=== PATIENT | female | born 1940 | race Caucasian/White ===

== ENCOUNTER 2018-06-19 06:08 | Emergency (ER) | payer MEDICARE, OTHER ==
[~2018-06-19] VITALS: Ht 160 cm; Wt 72.6 kg
[2018-06-19] MEDS ORDERED: SOTALOL 80 MG TABLET (06:39)
[2018-06-19] MEDS ORDERED: PANTOPRAZOLE SOD DR 40 MG TAB (06:39)
[2018-06-19] MEDS ORDERED: FUROSEMIDE 20 MG TABLET (06:39)
[2018-06-19] MEDS ORDERED: ROPINIROLE HCL 0.25 MG TABLET (06:39)
[2018-06-19] MEDS ORDERED: ALLOPURINOL 100 MG TABLET (06:39)
[2018-06-19] MEDS ORDERED: ELIQUIS 5 MG TABLET (06:39)
[2018-06-19] MEDS ORDERED: TRAZODONE 50 MG TABLET (06:39)
[2018-06-19] MEDS ORDERED: PRAVASTATIN SODIUM 40 MG TAB (06:39)
[2018-06-19] MEDS ORDERED: TRAMADOL HCL 50 MG TABLET (06:39)
[2018-06-19] MEDS ORDERED: ALPR0.25 (06:40)
[2018-06-19 06:49] LABS: CLARITY,URINE CLOUDY; COLOR,URINE AMBER; GLUCOSE, URINE (UA) NEGATIVE (NEGATIVE); KETONES,URINE NEGATIVE (NEGATIVE); NITRITE,URINE POSITIVE (NEGATIVE); PH,URINE 5.5 (5-9); PROTEIN,URINE 3+ (NEGATIVE)
[2018-06-19 07:02] LABS: BACTERIA,URINE TRACE /HPF; BILIRUBIN,URINE 1+ (NEGATIVE); LEUKOCYTE ESTERASE ,URINE 3+ (NEGATIVE); RBC,URINE >100 /HPF; UROBILINOGEN,URINE 0.2 MG/DL (NORMAL); WBC,URINE 50-100 /HPF
--- NOTE | 2018-06-19 07:02 | ED GU-Female ---
General Chief Complaint: - Urinary Stated Complaint: ABD PRESSURE, BLOOD IN URINE, SYMPTOMS OF UTI Nursing Triage Note: pt states uti symptoms sarted yesterday, has hx of frequent uti's, took azo over the counter with no relief Nursing Sepsis Screen: No Definite Risk Source: patient Exam Limitations: no limitations History of Present Illness Date Seen by Provider: Jun 19, 2018 Time Seen by Provider: 06:20 Initial Comments 77-year-old female with history of recurrent urinary tract infections and recent C. difficile infection who presents with urinary urgency frequency urgency and burning. Symptoms began yesterday and continued. Patient also has a diagnosis of atrial fibrillation and is on Eloquis. She has noted some blood in her urine. No fever chills, nausea vomiting or sweats. No flank pain, diarrhea. Completed antibiotics for C. difficile approximately 1 week ago. Patient took 2 doses of Azo yesterday with some improvement of symptoms. Timing/Duration: yesterday Severity/Quality: mild Location: suprapubic Radiation: none Activities at Onset: none Prior Genitourinary Problems: none Associated Symptoms: denies symptoms Allergies and Home Medications Allergies Coded Allergies: diltiazem (Verified Allergy, Unknown, rash, 06/19/18) Uncoded Allergies: SULFA (Allergy, Unknown, hives, 06/19/18) Patient Home Medication List Home Medication List Reviewed: Yes Review of Systems Review of Systems Constitutional: no symptoms reported EENTM: no symptoms reported Cardiovascular: no symptoms reported Gastrointestinal: no symptoms reported Genitourinary: see HPI, dysuria, pain, urgency Musculoskeletal: no symptoms reported Past Xlwjcws-Ahufke-Kpbysd Hx Past Med/Social Hx: Reviewed Nursing Past Med/Soc Hx Patient Social History Alcohol Use: Denies Use Recreational Drug Use: No Smoking Status: Never a Smoker 2nd Hand Smoke Exposure: No Recent Foreign Travel: No Contact w/Someone Who Travel: No Recent Infectious Disease Expo: Yes Recent Hopitalizations: No Physical Abuse: No Sexual Abuse: No Mistreated: No Fear: No Seasonal Allergies Seasonal Allergies: No Past Medical History Surgeries: Yes Adenoidectomy, Appendectomy, Hysterectomy, Tonsillectomy Respiratory: No Cardiac: Yes Atrial Fibrillation, Hypertension Neurological: No Genitourinary: No Gastrointestinal: Yes C-Diff Musculoskeletal: No Endocrine: No HEENT: No Cancer: No Psychosocial: No Integumentary: No Blood Disorders: No Adverse Reaction/Blood Tranf: No Physical Exam Vital Signs Vital Signs - First Documented 06/19/18 06:29 Temp 97.7 Pulse 92 Resp 15 B/P (MAP) 183/97 (125) Pulse Ox 100 O2 Delivery Room Air Capillary Refill : Less Than 3 Seconds Height, Weight, BMI Height: 5'3.00" Weight: 160lbs. oz. 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, no motor/sensory deficits Skin: normal color Progress/Results/Core Measures Suspected Sepsis Recent Fever Within 48 Hours: No Infection Criteria Present: None New/Unexplained Altered Menta: No Sepsis Screen: No Definite Risk SIRS Temperature:97.7 Pulse: 92 Respiratory Rate: 15 Blood Pressure 183 /97 Mean: 125 Results/Orders Lab Results Laboratory Tests Test 06/19/18 06:15 Range/Units Urine Color SANAM H Urine Clarity CLOUDY Urine pH 5.5 5-9 Urine Specific [place] 1.010 L 1.016-1.022 Urine Protein 3+ H NEGATIVE Urine Glucose (UA) NEGATIVE NEGATIVE Urine Ketones NEGATIVE NEGATIVE Urine Nitrite POSITIVE H NEGATIVE Urine Bilirubin 1+ H NEGATIVE Urine Urobilinogen 0.2 NORMAL MG/DL Urine Leukocyte Esterase 3+ H NEGATIVE Urine RBC (Auto) 3+ H NEGATIVE Urine RBC >100 H /HPF Urine WBC 50-100 H /HPF Urine Squamous Epithelial Cells 0-2 /HPF Urine Crystals NONE /LPF Urine Bacteria TRACE /HPF Urine Casts NONE /LPF Urine Mucus NONE /LPF Urine Culture Indicated YES My Orders Orders - IRWIN OROZCO DO Ua Culture If Indicated (06/19/18 06:35) Urine Culture (06/19/18 06:15) Doxycycline Hyclate Tablet (Vibramycin T (06/19/18 07:30) Vital Signs/I&O 06/19/18 06:29 Temp 97.7 Pulse 92 Resp 15 B/P (MAP) 183/97 (125) Pulse Ox 100 O2 Delivery Room Air Capillary Refill : Less Than 3 Seconds Blood Pressure Mean: 125 Departure Communication (Admissions) No systemic symptoms. First dose of antibiotics given in the emergency department. Recommend following up with PCP for urine culture results in 2 days. Return precautions reviewed. Impression Primary Impression: Urinary tract infection Disposition: HOME, SELF-CARE Condition: Stable Departure-Patient Inst. Decision time for Depature: 07:26 Referrals: MAGI YEBOAH MD (PCP) Primary Care Physician Patient Instructions: Urinary Tract Infection, Adult (DC) Add. Discharge Instructions: Please increase fluid intake and take next dose of antibiotics this afternoon. Discontinue antibiotics 2 days after symptoms resolve. Follow-up with your PCP for urine culture result. All discharge instructions reviewed with patient and/or family. Voiced understanding. Scripts Doxycycline Hyclate (Doxycycline Hyclate) 100 Mg Capsule 100 MG PO Q12H for 7 Days, CAP Prov: IRWIN OROZCO DO 06/19/18 IRWIN OROZCO DO Jun 19, 2018 07:02
[2018-06-19 07:03] LABS: SQUAMOUS EPITHELIAL CELL,UR 0-2 /HPF
[2018-06-19] MEDS ORDERED: DOXY100C2 PO (07:28)
[2018-06-19] MEDS ORDERED: DOXYCYCLINE 100 MG (VIBRAMYCIN) TABLET PO SCH (07:30)
[2018-06-19 07:35] VITALS: BP 172/76
== END 2018-06-19 07:32 | disposition home or self-care (01) ==
LOC: ER FS 06:12
DX: N39.0 Urinary tract infection, site not specified (principal); I48.91 Unspecified atrial fibrillation; I10 Essential (primary) hypertension; Z79.01 Long term (current) use of anticoagulants; Z87.440 Personal history of urinary (tract) infections; Z87.19 Personal history of other diseases of the digestive system; Z88.8 Allergy status to other drugs, medicaments and biological substances; Z88.2 Allergy status to sulfonamides; Z90.89 Acquired absence of other organs; Z90.49 Acquired absence of other specified parts of digestive tract; Z90.710 Acquired absence of both cervix and uterus
CPT/HCPCS: 81000; 87077; 87088; 87186; 99283

== ENCOUNTER 2018-07-19 20:08 | Inpatient (IN) | payer MEDICARE, OTHER ==
[~2018-07-19] VITALS: Ht 160 cm; Wt 72.6 kg
[~2018-07-19 20:08] MED LIST: ALLOPURINOL 100 MG TABLET PO; ALPR0.25 PO; DOXY100C2 PO; ELIQUIS 5 MG TABLET; FUROSEMIDE 20 MG TABLET PO; PANTOPRAZOLE SOD DR 40 MG TAB PO; PRAVASTATIN SODIUM 40 MG TAB PO; ROPINIROLE HCL 0.25 MG TABLET PO; SOTALOL 80 MG TABLET PO; TRAMADOL HCL 50 MG TABLET PO; TRAZODONE 50 MG TABLET PO
[2018-07-19] MEDS ORDERED: ASPIRIN 81 MG CHEW (CHILDREN'S ASA) PO ONE (20:15)
[2018-07-19] MEDS ORDERED: meTOprolol 5 MG/5 ML (LOPRESSOR) VIAL IV STA ×2 (20:31→21:43)
[2018-07-19] MEDS ORDERED: NS IV 1000 ML 1,000 ML IV STA (20:34)
--- NOTE | 2018-07-19 20:34 | ED Chest Pain ---
General Stated Complaint: HEART RACING, X OF AFIB Source: patient, spouse Exam Limitations: no limitations History of Present Illness Date Seen by Provider: Jul 19, 2018 Time Seen by Provider: 20:14 Initial Comments 78-year-old female presenting with complaints of chest pain and palpitations. She states that she has a history of atrial fibrillation and is concerned that she's back in that rhythm. She does have sotalol that she takes daily for this. She denies missing any doses. She had felt like her heart was trying to race off and on yesterday at around 6 PM today it had become constant. She has not been having any fever or chills. She denies having any cough. She was having some mild chest pressure. She states that she follows with cardiology out of [facility] Allergies and Home Medications Allergies Coded Allergies: amoxicillin (Verified Allergy, Unknown, 07/19/18) clavulanic acid (Verified Allergy, Unknown, 07/19/18) colesevelam (Verified Allergy, Unknown, 07/19/18) diltiazem (Verified Allergy, Unknown, rash, 06/19/18) oxycodone (Verified Allergy, Unknown, 07/19/18) rofecoxib (Verified Allergy, Unknown, 07/19/18) Uncoded Allergies: SULFA (Allergy, Unknown, hives, 06/19/18) Home Medications Alprazolam 0.25 Mg Tablet, PO BID, (Reported) [place]-3 Fatty Acids/Fish Oil 1 Each Capsule, 1 EACH PO DAILY, (Reported) Rivaroxaban 20 Mg Tablet, 20 MG PO DAILY, (Reported) [Allopurinol 100 Mg Tablet] , PO DAILY, (Reported) [Furosemide 20 Mg Tablet] , PO DAILY, (Reported) [Pantoprazole Sod Dr 40 Mg Tab] , PO DAILY, (Reported) [Pravastatin Sodium 40 Mg Tab] , PO DAILY, (Reported) [Ropinirole Hcl 0.25 Mg Tablet] , PO HS, (Reported) [Sotalol 80 Mg Tablet] , PO BID, (Reported) [Tramadol Hcl 50 Mg Tablet] , PO Q6H PRN for PAIN-MILD TO MODERATE, (Reported) [Trazodone 50 Mg Tablet] , PO HS PRN for SLEEP, (Reported) Patient Home Medication List Home Medication List Reviewed: Yes Review of Systems Review of Systems Constitutional: see HPI; No chills, No fever, No malaise EENTM: No Symptoms Reported Respiratory: Shortness of Air (mild) Cardiovascular: Chest Pain (mild pressure), Palpitations (feels like her heart tracing) Gastrointestinal: No Symptoms Reported Genitourinary: No Symptoms Reported Musculoskeletal: no symptoms reported Skin: no symptoms reported Psychiatric/Neurological: Anxiety Endocrine: No Symptoms Reported Hematologic/Lymphatic: Easy Bleeding (taking Xarelto), Easy Bruising (Taking Xarelto) Past Vfrcgzz-Kdfkyl-Thzsxp Hx Past Med/Social Hx: Reviewed Nursing Past Med/Soc Hx Patient Social History 2nd Hand Smoke Exposure: No Recent Foreign Travel: No Contact w/Someone Who Travel: No Recent Hopitalizations: No Seasonal Allergies Seasonal Allergies: No Past Medical History Surgeries: Yes Adenoidectomy, Appendectomy, Hysterectomy, Tonsillectomy Respiratory: No Cardiac: Yes Atrial Fibrillation, Hypertension Neurological: No Genitourinary: No Gastrointestinal: Yes C-Diff Musculoskeletal: No Endocrine: No HEENT: No Cancer: No Psychosocial: No Integumentary: No Blood Disorders: No Adverse Reaction/Blood Tranf: No Physical Exam Vital Signs Vital Signs - First Documented 07/19/18 20:13 Temp 97.4 Pulse 144 Resp 17 B/P (MAP) 162/95 (117) Pulse Ox 96 O2 Delivery Room Air Capillary Refill : Height, Weight, BMI Height: 5'3.00" Weight: 160lbs. oz. 72.804388wy; BMI Method:Stated General Appearance: No Apparent Distress, WD/WN HEENT: Pharynx Normal Neck: Full Range of Motion, Non Tender, Supple Respiratory: Chest Non Tender, Lungs Clear, Normal Breath Sounds, No Accessory Muscle Use, No Respiratory Distress Cardiovascular: No JVD, Normal Peripheral Pulses, Irregularly Irregular, Tachycardia, Other (trace pedela edema bilateral LE) Gastrointestinal: Normal Bowel Sounds, No Pulsatile Mass, Non Tender, Soft Rectal: Deferred Extremity: Normal Capillary Refill, Normal Inspection, Normal Range of Motion, Non Tender, No Calf Tenderness Neurologic/Psychiatric: Alert, Oriented x3, No Motor/Sensory Deficits Skin: Normal Color, Warm/Dry Progress/Results/Core Measures Results/Orders Lab Results Laboratory Tests Test 07/19/18 20:31 07/19/18 20:47 Range/Units White Blood Count 7.0 4.3-11.0 10^3/uL Red Blood Count 3.90 L 4.35-5.85 10^6/uL Hemoglobin 11.8 11.5-16.0 G/DL Hematocrit 37 35-52 % Mean Corpuscular Volume 94 80-99 FL Mean Corpuscular Hemoglobin 30 25-34 PG Mean Corpuscular Hemoglobin Concent 32 32-36 G/DL Red Cell Distribution Width 12.4 10.0-14.5 % Platelet Count 216 130-400 10^3/uL Mean Platelet Volume 10.7 H 7.4-10.4 FL Neutrophils (%) (Auto) 55 42-75 % Lymphocytes (%) (Auto) 31 12-44 % Monocytes (%) (Auto) 10 0-12 % Eosinophils (%) (Auto) 3 0-10 % Basophils (%) (Auto) 1 0-10 % Neutrophils # (Auto) 3.8 1.8-7.8 X 10^3 Lymphocytes # (Auto) 2.2 1.0-4.0 X 10^3 Monocytes # (Auto) 0.7 0.0-1.0 X 10^3 Eosinophils # (Auto) 0.2 0.0-0.3 10^3/uL Basophils # (Auto) 0.0 0.0-0.1 10^3/uL Prothrombin Time 15.0 H 12.2-14.7 SEC INR Comment 1.1 0.8-1.4 Activated Partial Thromboplast Time 43 H 24-35 SEC Sodium Level 145 135-145 MMOL/L Potassium Level 4.2 3.6-5.0 MMOL/L Chloride Level 104 98-107 MMOL/L Carbon Dioxide Level 31 21-32 MMOL/L Anion Gap 10 5-14 MMOL/L Blood Urea Nitrogen 26 H 7-18 MG/DL Creatinine 1.16 0.60-1.30 MG/DL Estimat Glomerular Filtration Rate 45 BUN/Creatinine Ratio 22 Glucose Level 144 H 70-105 MG/DL Calcium Level 9.5 8.5-10.1 MG/DL Corrected Calcium 8.5-10.1 MG/DL Magnesium Level 1.8 1.8-2.4 MG/DL Total Bilirubin 0.2 0.1-1.0 MG/DL Aspartate Amino Transf (AST/SGOT) 16 5-34 U/L Alanine Aminotransferase (ALT/SGPT) 13 0-55 U/L Alkaline Phosphatase 84 40-136 U/L Troponin T 12 H <=10 NG/L Pro-B-Type Natriuretic Peptide 656.8 H <75.0 PG/ML Total Protein 7.6 6.4-8.2 GM/DL Albumin 4.6 H 3.2-4.5 GM/DL Urine Color YELLOW Urine Clarity CLEAR Urine pH 6.0 5-9 Urine Specific [place] <=1.005 1.016-1.022 Urine Protein 1+ H NEGATIVE Urine Glucose (UA) NEGATIVE NEGATIVE Urine Ketones NEGATIVE NEGATIVE Urine Nitrite NEGATIVE NEGATIVE Urine Bilirubin NEGATIVE NEGATIVE Urine Urobilinogen 0.2 NORMAL MG/DL Urine Leukocyte Esterase NEGATIVE NEGATIVE Urine RBC (Auto) NEGATIVE NEGATIVE Urine RBC NONE /HPF Urine WBC RARE /HPF Urine Squamous Epithelial Cells 0-2 /HPF Urine Crystals NONE /LPF Urine Bacteria NEGATIVE /HPF Urine Casts NONE /LPF Urine Mucus NEGATIVE /LPF Urine Culture Indicated NO My Orders Orders - VETO GREGORY MD Cbc With Automated Diff (07/19/18 20:15) Magnesium (07/19/18 20:15) Chest 1 View Ap/Pa Only (07/19/18 20:15) Ekg Tracing (07/19/18 20:15) Comprehensive Metabolic Panel (07/19/18 20:15) Protime With Inr (07/19/18 20:15) Partial Thromboplastin Time (07/19/18 20:15) O2 (07/19/18 20:15) Monitor-Rhythm Ecg Trace Only (07/19/18 20:15) Ed Iv/Invasive Line Start (07/19/18 20:15) Troponin T (07/19/18 20:15) Probnp Fs (07/19/18 20:15) Metoprolol Tartrate Injection (Lopressor (07/19/18 20:31) Ua Culture If Indicated (07/19/18 20:34) Ns Iv 1000 Ml (Sodium Chloride 0.9%) (07/19/18 20:34) Metoprolol Tartrate Injection (Lopressor (07/19/18 21:43) Amiodarone For Bolus (Cordarone Bolus) (07/19/18 22:06) Amiodarone Injection (Cordarone Injectio (07/19/18 22:06) Vital Signs/I&O 07/19/18 20:13 Temp 97.4 Pulse 144 Resp 17 B/P (MAP) 162/95 (117) Pulse Ox 96 O2 Delivery Room Air 07/20/18 00:00 Intake Total 1003 ml Balance 1003 ml Progress Progress Note #1: Time: 20:20 Progress Note Check labs and electrocardiogram and chest x-ray. Give IV fluids for hydration and as well as a dose of metoprolol to see if that will help reading down her heart rate. Since she is allergic to diltiazem we'll have to avoid that. She may have to get a dose of amiodarone or other medication to try and help with her atrial fibrillation with RVR. Since her blood pressure is well-maintained and she is not showing signs of acute decompensation will try to avoid emergent cardioversion Progress Note #2: Time: 21:05 Progress Note Labs show stable CBC and Chemistry. Troponin and BNP are still pending. Coags do not show acute significant abnormality and urine is dilute without signs of infection. CXR is clear without infection or infiltrate or effusion. after metoprolol dose her heart rate is fluctuating from 120-140 so slightly improved from the 150s when she first arrived, but still in atrial fibrillation. Progress Note #3: Time: 21:38 Progress Note Troponin is not elevated. BNP is slightly elevated. Will repeat Metoprolol 5 mg IV and see if that will get her heart rate down to a better rate. If not improved will start Amiodarone drip and check with [facility] about admit for tonight. Pt and spouse report that they have a son that is having a procedure in the morning at [place] and due to the late hour they would be interested in going to [place] for this episode rather than having to travel to [facility]. Progress Note #4: Time: 22:25 Progress Note No significant improvement in her rate with 2nd dose of Metoprolol so will start Amiodarone bolus then drip and d/w Dr. Ruffin, concession stand attendant provider for [facility] Dr. Yeboah. She accepted the pt for admit and requested consult to Dr. Green. 223 d/w Dr. Green and reviewed admit plan with him. Progress Note #5: Time: 00:35 Progress Note 20 July 2018 0035 EMS leaving with the patient to take her to [facility]. She has had her heart rate slow to 100-110s with the amiodarone bolus and infusion. She remains hemodynamically stable. Initial ECG Impression Date: Jul 19, 2018 Initial ECG Impression Time: 20:17 Initial ECG Rate: 140 Initial ECG Rhythm: A Fib/Flutter (with rapid ventricular response) Initial ECG Impression: Atrial Fibrillation w/RVR Initial ECG Comparisson: No Previous ECG Available Comment Atrial fibrillation with rapid ventricular response and heart rate 140 bpm. His T and T-wave abnormality for possible inferolateral ischemia. QT interval of 296 ms and QT corrected interval of [address] elevation. Diagnostic Imaging Diagonstic Imaging: Xray Plain Films/CT/US/NM/MRI: chest Comments NAME: [facility] REC#: [id number] PT STATUS: REG ER : 1940 PHYSICIAN: VETO GREGORY MD ADMIT DATE: 07/19/18/ER FS Draft Date of Exam:07/19/18 CHEST 1 VIEW AP/PA ONLY Indication: Tachycardia. Time of exam: 8:40 PM No prior studies are available for comparison. Changes of median sternotomy and CABG are noted. No infiltrate, effusion or pneumothorax is seen. Impression: No acute cardiopulmonary process is detected. Dictated on workstation # [id number] Dict: 07/19/182104 Trans: 07/19/182112 [facility] [id number] Interpreted by: JIMBO BREWER MD Electronically signed by: Reviewed: Reviewed by Me (and radiologist's reading) Departure Communication (Admissions) Time/Spoke to Admitting Phy: 22:[address] Ruffin at 5 about admit for Atrial Fibrillation with RVR requiring IV drip to obtain rate control. She requested cardiology consult. Time/Spoke to Consulting Phy: 22:32 D/w Dr. Green at 2232 and reviewed my plan of starting Amiodarone for the patient since she is already on Xarelto and has known Paroxysmal Atrial Fibrillation, but is needing rate control tonight. Impression Primary Impression: Atrial fibrillation with rapid ventricular response Disposition: ADMITTED INPATIENT Condition: Stable Admissions Decision to Admit Reason: Admit from ER (General) Decision to Admit/Date: Jul 19, 2018 Time/Decision to Admit Time: 22:25 Departure-Patient Inst. Referrals: MAGI YEBOAH MD (PCP/Family) Primary Care Physician VETO GREGORY MD Jul 19, 2018 20:34
[2018-07-19 20:59] LABS: INR 1.1 (0.8-1.4)
[2018-07-19 21:00] LABS: BACTERIA,URINE NEGATIVE /HPF; BILIRUBIN,URINE NEGATIVE (NEGATIVE); CLARITY,URINE CLEAR; COLOR,URINE YELLOW; GLUCOSE, URINE (UA) NEGATIVE (NEGATIVE); KETONES,URINE NEGATIVE (NEGATIVE); LEUKOCYTE ESTERASE ,URINE NEGATIVE (NEGATIVE); NITRITE,URINE NEGATIVE (NEGATIVE); PROTEIN,URINE 1+ (NEGATIVE); UROBILINOGEN,URINE 0.2 MG/DL (NORMAL); WBC,URINE RARE /HPF
[2018-07-19 21:01] LABS: SQUAMOUS EPITHELIAL CELL,UR 0-2 /HPF
[2018-07-19 21:02] LABS: BASOPHILS % (AUTO) 1 % (0-10); EOSINOPHILS % (AUTO) 3 % (0-10); HEMATOCRIT 37 % (35-52); HEMOGLOBIN 11.8 G/DL (11.5-16.0); MEAN CORPUSCULAR HEMOGLOBIN 30 PG (25-34); MEAN CORPUSCULAR HGB CONC 32 G/DL (32-36); MEAN CORPUSCULAR VOLUME 94 FL (80-99); MEAN PLATELET VOLUME 10.7 FL (7.4-10.4); MONOCYTES % (AUTO) 10 % (0-12); NEUTROPHILS % (AUTO) 55 % (42-75); PLATELET COUNT 216 10^3/uL (130-400); RED CELL DISTRIBUTION WIDTH 12.4 % (10.0-14.5)
[2018-07-19 21:03] LABS: EOSINOPHILS # (AUTO) 0.2 10^3/uL (0.0-0.3); LYMPHOCYTES # (AUTO) 2.2 X 10^3 (1.0-4.0); LYMPHOCYTES % (AUTO) 31 % (12-44); MONOCYTES # (AUTO) 0.7 X 10^3 (0.0-1.0); NEUTROPHILS # (AUTO) 3.8 X 10^3 (1.8-7.8)
[2018-07-19] MEDS ORDERED: OMEG1CAP58 PO (21:03)
[2018-07-19] MEDS ORDERED: RIVA20TA PO (21:03)
[2018-07-19 21:04] LABS: ALKALINE PHOSPHATASE 84 U/L (40-136); BILIRUBIN,TOTAL 0.2 MG/DL (0.1-1.0); BUN/CREATININE RATIO 22; CALCIUM 9.5 MG/DL (8.5-10.1); CARBON DIOXIDE 31 MMOL/L (21-32); CHLORIDE 104 MMOL/L (98-107); CREATININE SERUM 1.16 MG/DL (0.60-1.30); GFR ESTIMATED 45; GLUCOSE 144 MG/DL (70-105); MAGNESIUM 1.8 MG/DL (1.8-2.4); POTASSIUM 4.2 MMOL/L (3.6-5.0); SODIUM 145 MMOL/L (135-145)
[2018-07-19 21:05] LABS: ALANINE AMINOTRANSFERASE 13 U/L (0-55); ALBUMIN 4.6 GM/DL (3.2-4.5); TOTAL PROTEIN 7.6 GM/DL (6.4-8.2)
--- NOTE | 2018-07-19 21:14 | Diagnostic Imaging Report ---
Indication: Tachycardia. Time of exam: 8:40 PM No prior studies are available for comparison. Changes of median sternotomy and CABG are noted. No infiltrate, effusion or pneumothorax is seen. Impression: No acute cardiopulmonary process is detected. Dictated by: Dictated on workstation # [id number]
[2018-07-19] MEDS ORDERED: AMIODARONE INJECTION 450 MG in D5W IV SOLUTION (EXCEL) 250 ML IV STA (22:06)
[2018-07-19] MEDS ORDERED: AMIODARONE FOR BOLUS 150 MG in D5W 100 ML IVPB 100 ML IV STA (22:06)
[2018-07-20] VITALS (35 sets, daily range): BP systolic 102–158; BP diastolic 76–118
[2018-07-20] MEDS ORDERED: CATHETER FLUSH 10 ML SYR IV PRN (02:00)
[2018-07-20 03:53] LABS: BASOPHILS % (AUTO) 0 % (0-10); EOSINOPHILS # (AUTO) 0.1 10^3/uL (0.0-0.3); EOSINOPHILS % (AUTO) 2 % (0-10); HEMATOCRIT 38 % (35-52); HEMOGLOBIN 12.1 G/DL (11.5-16.0); LYMPHOCYTES # (AUTO) 1.6 X 10^3 (1.0-4.0); LYMPHOCYTES % (AUTO) 23 % (12-44); MEAN CORPUSCULAR HEMOGLOBIN 30 PG (25-34); MEAN CORPUSCULAR HGB CONC 32 G/DL (32-36); MEAN CORPUSCULAR VOLUME 92 FL (80-99); MONOCYTES # (AUTO) 0.6 X 10^3 (0.0-1.0); MONOCYTES % (AUTO) 9 % (0-12); NEUTROPHILS # (AUTO) 4.5 X 10^3 (1.8-7.8); NEUTROPHILS % (AUTO) 66 % (42-75); PLATELET COUNT 235 10^3/uL (130-400); RED CELL DISTRIBUTION WIDTH 12.7 % (10.0-14.5); WHITE BLOOD COUNT 6.8 10^3/uL (4.3-11.0)
[2018-07-20 04:31] LABS: ALBUMIN 4.2 GM/DL (3.2-4.5); BILIRUBIN,TOTAL 0.3 MG/DL (0.1-1.0); CALCIUM 10.1 MG/DL (8.5-10.1); CREATININE SERUM 1.1 MG/DL (0.60-1.30); MAGNESIUM 1.9 MG/DL (1.8-2.4); PHOSPHORUS 3.2 MG/DL (2.3-4.7); POTASSIUM 4.1 MMOL/L (3.6-5.0)
[2018-07-20] MEDS: CATHETER FLUSH 10 ML SYR IV SCH ×3 (05:07→21:18)
[2018-07-20] MEDS: AMIODARONE 450 MG/250 ML D5W EXCEL IV SCH ×4 (06:40→23:03)
[2018-07-20] MEDS: RIVAROXABAN 20 MG TABLET (XARELTO) PO SCH (08:16)
[2018-07-20] MEDS: meTOprolol SUCCINATE 100 MG (TOPROL XL) TAB PO SCH (08:16)
--- NOTE | 2018-07-20 09:06 | Diagnostic Imaging Report ---
INDICATION: Atrial fibrillation. COMPARISON: 07/19/2018. FINDINGS: The sternal wires are midline. The heart size is within normal limits. Some minimal linear scarring in the lung bases is chronic. No infiltrate, edema, effusion, or pneumothorax. IMPRESSION: Stable chest. Dictated by: Dictated on workstation # [id number]
[2018-07-20] MEDS ORDERED: PANT40TA3 PO (10:08)
[2018-07-20] MEDS ORDERED: TRAM50TA2 PO (10:14)
[2018-07-20] MEDS ORDERED: ALLO100T PO (10:14)
[2018-07-20] MEDS ORDERED: PRAV40TA2 PO (10:14)
[2018-07-20] MEDS ORDERED: STL80T PO (10:14)
[2018-07-20] MEDS ORDERED: ALPR0.254 PO (10:14)
[2018-07-20] MEDS ORDERED: CALC-654 PO (10:14)
[2018-07-20] MEDS ORDERED: FURO20TA4 PO (10:14)
[2018-07-20] MEDS ORDERED: EZET10TA5 PO (10:14)
[2018-07-20] MEDS ORDERED: ROPI0.253 PO ×2 (10:14)
--- NOTE | 2018-07-20 10:15 | Consultation-Cardiology ---
HPI-Cardiology Cardiology Consultation: Date of Consultation 07/20/18 Time Seen by a Provider: 09:40 Date of Admission 07-19-18 Attending Physician Milind Ramirez MD Admitting Physician Sotero Adrian MD Consulting Physician Marce Green MD HPI: Chief Complaint: A-fib with RVR Ms. Ya is a 78 year old female who was seen in the [facility] ED, found to be in a-fib with RVR, started on Amiodarone gtt and transferred to ICU 6. Her is at the bedside. She reports she has a h/o PAF which was first diagnosed in September 2017. She sees Dr. Vanna Mendez at [facility]; she saw her last on June 23, 2018. She reports she had a cardioversion at [facility] in Nov 2017. She states she is on Xarelto. She reports Xarelto has been uninterrupted tx for greater than 3 months. She states last evening she had finished eating; washed dishes and sat down. She reports she began to have a feeling of fluttering in her chest. She states she knew was back in a-fib. She waited for a few minutes and the symptoms persisted so she came to the ED at [facility]. She denies any CP, dyspnea, syncope or near syncope. She denies any n/v/d. She denies any fever or chills. She reports she has chronic mild lower extremity swelling which is unchanged in the recent past. She reports she does not sleep well at home. She reports she wakes up frequently during the night. She reports daytime somnolence. She is currently not reporting any symptoms. Review of Systems-Cardiology Review of Systems Constitutional: No chills, No fever Eyes: No vision change Ears/Nose/Throat: No epistaxis, No recent hearing loss Respiratory: As described under HPI Cardiovascular: As described under HPI Gastrointestinal: No constipation, No diarrhea, No nausea, No vomiting Genitourinary: No dysuria, No hematuria Musculoskeletal: no symptoms reported Skin: No rash, No ulcerations Psychiatric/Neurological: No seizure, No focal weakness, No syncope Hematologic: No bleeding abnormalities GUS-Srhldy-Glmlhf Hx Patient Social History Alcohol Use: Denies Use Recreational Drug Use: No Smoking Status: Never a Smoker 2nd Hand Smoke Exposure: No Recent Foreign Travel: No Recent Infectious Disease Expo: No Hospitalization with Isolation: Denies Immunizations Up To Date Tetanus Booster (TDap): Unknown Date of Pneumonia Vaccine: Feb 20, 2018 Past Medical History PMH As described under Assessment. Family Medical History Family Medical History: Mother had CAD with 3 vessel CABG and CVA. Son has CAD with CABG in his 50's. Family History: Completed stroke 19 MOTHER, , Onset:60 years & older FH: CABG (coronary artery bypass surgery) 19 MOTHER, , Onset:Unknown FH: emphysema 19 FATHER, , Onset:Unknown Allergies and Home Medications Allergies Coded Allergies: amoxicillin (Verified Allergy, Unknown, 07/19/18) clavulanic acid (Verified Allergy, Unknown, 07/19/18) colesevelam (Verified Allergy, Unknown, 07/19/18) diltiazem (Verified Allergy, Unknown, rash, 06/19/18) oxycodone (Verified Allergy, Unknown, 07/19/18) rofecoxib (Verified Allergy, Unknown, 07/19/18) Uncoded Allergies: SULFA (Allergy, Unknown, hives, 06/19/18) Home Medications Allopurinol 100 Mg Tablet, 100 MG PO DAILY, (Reported) Alprazolam 0.25 Mg Tablet, 0.25 MG PO TID PRN for ANXIETY, (Reported) Calcium Carbonate/Vitamin D3 1 Each Tablet, 1 TAB PO BID, (Reported) Ezetimibe 10 Mg Tablet, 10 MG PO HS, (Reported) Furosemide 20 Mg Tablet, 20 MG PO DAILY PRN for SWELLING, (Reported) Metoprolol Succinate 100 Mg Tab.er.24h, 100 MG PO DAILY Prescribed by: SERGEY MCCARTHY on 07/22/18 09 Armstrong-3 Fatty Acids/Fish Oil 1 Each Capsule, 1,000 MG PO BID, (Reported) Pantoprazole Sodium 40 Mg Tablet.dr, 40 MG PO DAILY, (Reported) Pravastatin Sodium 40 Mg Tablet, 40 MG PO HS, (Reported) Rivaroxaban 20 Mg Tablet, 20 MG PO DAILY, (Reported) Rivaroxaban 15 Mg Tablet, 15 MG PO DAILY Prescribed by: SERGEY MCCARTHY on 07/22/18 0930 Ropinirole HCl 0.25 Mg Tablet, 0.25 MG PO DAILY PRN for RESTLESS LEGS, (Reported ) Ropinirole HCl 0.25 Mg Tablet, 0.25 MG PO 1700, (Reported) Sotalol HCl 80 Mg Tablet, 80 MG PO DAILY, (Reported) Tramadol HCl 50 Mg Tablet, 50 MG PO Q6H PRN for BACK PAIN, (Reported) [Sotalol Hcl] 80 MG TAB, 80 MG PO BID Prescribed by: SERGEY MCCARTHY on 07/22/18 5396 Patient Home Medication List Home Medication List Reviewed: Yes Physical Exam-Cardiology Physical Exam Vital Signs/I&O 07/22/18 07/22/18 07/22/18 07/22/18 00:21 01:01 04:35 06:23 Temp 98.0 97.2 Pulse 57 59 60 55 Resp 17 18 B/P (MAP) 112/73 (86) 136/63 (87) Pulse Ox 96 98 O2 Delivery Room Air Room Air 07/22/18 08:00 Temp 98.4 Pulse 61 Resp 18 B/P (MAP) 121/69 (86) Pulse Ox 99 O2 Delivery Room Air 07/22/18 00:00 Intake Total 440 ml Output Total 350 ml Balance 90 ml Capillary Refill : Less Than 3 Seconds Constitutional: AAO x 3, well-developed, well-nourished HEENT: PERRL, hearing is well preserved, oral hygience is good Neck: No carotid bruit; carotid pulses are 2 + bilaterally Respiratory: No accessory muscle use, No respiratory distress; chest expansion is symmetric, chest is bilaterally symmetric, lungs clear to auscultation Cardiovascular: irregularly irregular; No JVD; S1 and S2 Gastrointestinal: No tender; soft, round, audible bowel sounds Rectal: deferred Extremities: no lower extremity edema bilateral Neurologic/Psychiatric: grossly intact, power is 5/5 both on sides Skin: No rash, No ulcerations Data Review Labs Laboratory Tests 07/22/18 04:00: White Blood Count 6.3, Red Blood Count 3.87L, Hemoglobin 11.6, Hematocrit 36, Mean Corpuscular Volume 93, Mean Corpuscular Hemoglobin 30, Mean Corpuscular Hemoglobin Concent 32, Red Cell Distribution Width 12.4, Platelet Count 213, Mean Platelet Volume 11.1H, Neutrophils (%) (Auto) 61, Lymphocytes (%) (Auto) 26 , Monocytes (%) (Auto) 11, Eosinophils (%) (Auto) 2, Basophils (%) (Auto) 0, Neutrophils # (Auto) 3.8, Lymphocytes # (Auto) 1.6, Monocytes # (Auto) 0.7, Eosinophils # (Auto) 0.1, Basophils # (Auto) 0.0, Sodium Level 143, Potassium Level 4.5, Chloride Level 110H, Carbon Dioxide Level 22, Anion Gap 11, Blood Urea Nitrogen 24H, Creatinine 1.14, Estimat Glomerular Filtration Rate 46, BUN/ Creatinine Ratio 21, Glucose Level 103, Calcium Level 9.8, Phosphorus Level 4.0 , Magnesium Level 1.7L Microbiology 07/20/18 MRSA Screen - Final, Complete MRSA not isolated Radiology NAME: STAN YA [facility] REC#: [id number] PT STATUS: ADM IN : 1940 PHYSICIAN: MILIND RAMIREZ MD ADMIT DATE: 07/19/18/ICU Draft Date of Exam:07/20/18 CHEST 1 VIEW, AP/PA ONLY INDICATION: Atrial fibrillation. COMPARISON: 07/19/2018. FINDINGS: The sternal wires are midline. The heart size is within normal limits. Some minimal linear scarring in the lung bases is chronic. No infiltrate, edema, effusion, or pneumothorax. IMPRESSION: Stable chest. Dictated on workstation # [id number] Dict: 07/20/18 0802 Trans: 07/20/18 0906 [id number] Interpreted by: MELISSA DE LA CRUZ Electronically signed by: ECG Impression ECG Initial ECG Impression: Atrial Fibrillation w/RVR A/P-Cardiology Assessment/Admission Diagnosis A-fib with RVR H/O PAF for which she follows with Dr. Mendez at [facility] - reports first dx in September 2017 H/O cardioversion at [facility] in Nov 2017 Xarelto for stroke prophylaxis - reports NO missed doses for greater than 6 months Allergy to Diltiazem - reports rash H/O CABG x 5 vessel in [address] Solomon HTN HLD - statin tx H/O gastric ulcers and GERD Anxiety Suspected sleep apnea Family h/o CAD - mother had CABG, CVA; son with CAD and CABG Discussion and Recomendations A-fib with RVR - h/o PAF for which she has been on OAC with Xarelto with uninterrupted tx for greater than 3 months. Continue OAC She is currently on Amiodarone gtt, rate is not well controlled and she remains in a-fib - continue BB She is intolerant to Diltiazem d/t reported rash If she remains in a-fib then plan for probable cardioversion in the morning Echocardiogram to eval structure Continue ASA d/t known h/o CAD with CABG Check TSH Monitor lab Advise out pt sleep studies d/t symptoms suggestive of sleep apnea We would like to thank medical services for this consult Further recs will be based on her hospital course Clinical Quality Measures DVT/VTE Risk/Contraindication: Risk Factor Score Per Nursin RFS Level Per Nursing on Admit: 2=Moderate SERGEY MCCARTHY Jul 20, 2018 10:15
--- NOTE | 2018-07-20 11:37 | NUR ---
PATIENT HAD A LIST OF HER MEDICATIONS WITH HER. WE WENT OVER THAT LIST AND THEN I VERIFIED THE LAST FILL DATES WITH [facility] IN [place]. [facility] F[facility]: 07-09-18 SOTALOL 80MG DAILY #30 07-01-18 ALLOPURINOL 100MG DAILY #30 07-01-18 ZETIA 10MG DAILY #30 06-23-18 XARELTO 20MG DAILY #30 (REPLACED ELIQUIS) 06-07-18 PROTONIX 40MG DAILY #90 06-07-18 ROPINIROLE 0.25MG BID #60 (TAKES 1 HS SCHEDULED AND 1 DAILY PRN) 04-12-18 XANAX 0.25MG TID PRN #30 04-16-18 PRAVASTATIN 40MG DAILY #90 SHE STATES SHE ALSO HAS LASIX AND TRAMADOL ON HAND NEEDED. SHE TAKES CALCIUM +D BID AND FISH OIL BID OTC.
--- NOTE | 2018-07-20 11:52 | History & Physicial (CHS) ---
HPI History of Present Illness: 78 yo female presented to ER due to known paroxysmal atrial fibrillation, she started having racing heart at about 7 pm that did not stop. She had to have cardioversion in November in [place], and was in the hospital in March in [place] as well. She had a sinus infection followed by c diff followed by UTI over the last few months, but had actually been feeling well recently until this occurred. She denies fever, chest pain, shortness of breath or cough. She does have CAD and had CABG in the past. She sees Cardiology in [place]. She has been on Xarelto for anticoagulation. She is allergic to dilitiazem. Date seen by provider: Jul 20, 2018 Time Seen by Provider: 09:15 Attending Physician Milind Ramirez MD PCP Sotero Adrian MD Consult Date of Admission Jul 19, 2018 at 22:35 Home Medications Home Medications Reviewed patient Home Medication Reconciliation performed by pharmacy medication reconciliations rv repair technician and/or nursing. Patients Allergies have been reviewed. Allergies Coded Allergies: amoxicillin (Verified Allergy, Unknown, 07/19/18) clavulanic acid (Verified Allergy, Unknown, 07/19/18) colesevelam (Verified Allergy, Unknown, 07/19/18) diltiazem (Verified Allergy, Unknown, rash, 06/19/18) oxycodone (Verified Allergy, Unknown, 07/19/18) rofecoxib (Verified Allergy, Unknown, 07/19/18) Uncoded Allergies: SULFA (Allergy, Unknown, hives, 06/19/18) KDC-Cjbkrn-Nnjban Hx Patient Social History Alcohol Use: Denies Use Recreational Drug Use: No Smoking Status: Never a Smoker 2nd Hand Smoke Exposure: No Recent Foreign Travel: No Contact w/other who traveled: No Recent Hopitalizations: No Recent Infectious Disease Expo: No Immunizations Up To Date Tetanus Booster (TDap): Unknown Date of Pneumonia Vaccine: Feb 20, 2018 Past Medical History PMHx: CAD s/p CABG Paroxysmal atrial fibrillation HTN HLD SurgHx: Hysterectomy Family Medical History Family History: Completed stroke 19 MOTHER, , Onset:60 years & older FH: CABG (coronary artery bypass surgery) 19 MOTHER, , Onset:Unknown FH: emphysema 19 FATHER, , Onset:Unknown Review of Systems (CHC) Constitutional: No fever EENTM: No nose congestion, No throat pain Respiratory: No cough, No short of breath Cardiovascular: see HPI Gastrointestinal: No abdominal pain, No constipation, No diarrhea, No nausea, No vomiting Genitourinary: No dysuria Musculoskeletal: No joint pain Skin: No rash Psychiatric/Neurological: No Symptoms Reported Reviewed Test Results Reviewed Test Results Lab Laboratory Tests Test 07/19/18 20:31 07/19/18 20:47 07/20/18 03:45 Range/Units White Blood Count 7.0 6.8 4.3-11.0 10^3/uL Red Blood Count 3.90 L 4.06 L 4.35-5.85 10^6/uL Hemoglobin 11.8 12.1 11.5-16.0 G/DL Hematocrit 37 38 35-52 % Mean Corpuscular Volume 94 92 80-99 FL Mean Corpuscular Hemoglobin 30 30 25-34 PG Mean Corpuscular Hemoglobin Concent 32 32 32-36 G/DL Red Cell Distribution Width 12.4 12.7 10.0-14.5 % Platelet Count 216 235 130-400 10^3/uL Mean Platelet Volume 10.7 H 11.0 H 7.4-10.4 FL Neutrophils (%) (Auto) 55 66 42-75 % Lymphocytes (%) (Auto) 31 23 12-44 % Monocytes (%) (Auto) 10 9 0-12 % Eosinophils (%) (Auto) 3 2 0-10 % Basophils (%) (Auto) 1 0 0-10 % Neutrophils # (Auto) 3.8 4.5 1.8-7.8 X 10^3 Lymphocytes # (Auto) 2.2 1.6 1.0-4.0 X 10^3 Monocytes # (Auto) 0.7 0.6 0.0-1.0 X 10^3 Eosinophils # (Auto) 0.2 0.1 0.0-0.3 10^3/uL Basophils # (Auto) 0.0 0.0 0.0-0.1 10^3/uL Prothrombin Time 15.0 H 12.2-14.7 SEC INR Comment 1.1 0.8-1.4 Activated Partial Thromboplast Time 43 H 24-35 SEC Sodium Level 145 144 135-145 MMOL/L Potassium Level 4.2 4.1 3.6-5.0 MMOL/L Chloride Level 104 108 H 98-107 MMOL/L Carbon Dioxide Level 31 23 21-32 MMOL/L Anion Gap 10 13 5-14 MMOL/L Blood Urea Nitrogen 26 H 19 H 7-18 MG/DL Creatinine 1.16 1.10 0.60-1.30 MG/DL Estimat Glomerular Filtration Rate 45 48 BUN/Creatinine Ratio 22 17 Glucose Level 144 H 127 H 70-105 MG/DL Calcium Level 9.5 10.1 8.5-10.1 MG/DL Corrected Calcium 9.9 8.5-10.1 MG/DL Magnesium Level 1.8 1.9 1.8-2.4 MG/DL Total Bilirubin 0.2 0.3 0.1-1.0 MG/DL Aspartate Amino Transf (AST/SGOT) 16 17 5-34 U/L Alanine Aminotransferase (ALT/SGPT) 13 12 0-55 U/L Alkaline Phosphatase 84 66 40-136 U/L Troponin T 12 H <=10 NG/L Pro-B-Type Natriuretic Peptide 656.8 H <75.0 PG/ML Total Protein 7.6 7.0 6.4-8.2 GM/DL Albumin 4.6 H 4.2 3.2-4.5 GM/DL Urine Color YELLOW Urine Clarity CLEAR Urine pH 6.0 5-9 Urine Specific [place] <=1.005 1.016-1.022 Urine Protein 1+ H NEGATIVE Urine Glucose (UA) NEGATIVE NEGATIVE Urine Ketones NEGATIVE NEGATIVE Urine Nitrite NEGATIVE NEGATIVE Urine Bilirubin NEGATIVE NEGATIVE Urine Urobilinogen 0.2 NORMAL MG/DL Urine Leukocyte Esterase NEGATIVE NEGATIVE Urine RBC (Auto) NEGATIVE NEGATIVE Urine RBC NONE /HPF Urine WBC RARE /HPF Urine Squamous Epithelial Cells 0-2 /HPF Urine Crystals NONE /LPF Urine Bacteria NEGATIVE /HPF Urine Casts NONE /LPF Urine Mucus NEGATIVE /LPF Urine Culture Indicated NO Phosphorus Level 3.2 2.3-4.7 MG/DL Thyroid Stimulating Hormone (TSH) 1.79 0.35-4.94 UIU/ML Radiology NAME: [facility]A [facility] REC#: [id number] PT STATUS: ADM IN : 1940 PHYSICIAN: MILIND RAMIREZ MD ADMIT DATE: 07/19/18/ICU Draft Date of Exam:07/20/18 CHEST 1 VIEW, AP/PA ONLY INDICATION: Atrial fibrillation. COMPARISON: 07/19/2018. FINDINGS: The sternal wires are midline. The heart size is within normal limits. Some minimal linear scarring in the lung bases is chronic. No infiltrate, edema, effusion, or pneumothorax. IMPRESSION: Stable chest. Dictated on workstation # [id number] Dict: 07/20/18 0802 Trans: 07/20/18 0906 [id number] Interpreted by: MELISSA DE LA CRUZ Electronically signed by: Physical Exam-(CHC) Physical Exam Vital Signs VS - Last 72 Hours, by Label 07/19/18 07/20/18 07/20/18 07/20/18 20:13 00:36 01:20 01:32 Temp 97.4 98.2 Pulse 144 113 133 Resp 17 21 B/P (MAP) 162/95 (117) 145/87 (106) Pulse Ox 96 98 98 O2 Delivery Room Air Room Air Room Air 07/20/18 07/20/18 07/20/18 07/20/18 01:33 01:45 02:00 02:15 Temp 96.8 Pulse 118 126 125 130 Resp 16 13 18 19 B/P (MAP) 151/98 (115) 153/92 (112) 128/99 (109) 137/94 (108) Pulse Ox 98 96 97 96 O2 Delivery Room Air Room Air Room Air Room Air 07/20/18 07/20/18 07/20/18 07/20/18 02:30 02:45 03:00 03:15 Pulse 133 126 129 122 Resp 19 18 18 22 B/P (MAP) 135/91 (106) 144/96 (112) 144/107 (119) Pulse Ox 97 96 95 97 O2 Delivery Room Air Room Air Room Air Room Air 07/20/18 07/20/18 07/20/18 07/20/18 03:30 03:45 04:00 04:00 Pulse 125 126 130 Resp 17 10 15 B/P (MAP) 102/76 (85) 122/92 (102) Pulse Ox 96 96 95 95 O2 Delivery Room Air Room Air Room Air Room Air 07/20/18 07/20/18 07/20/18 07/20/18 04:15 04:15 04:30 04:45 Temp 97.6 Pulse 128 123 121 Resp 18 11 21 B/P (MAP) 126/83 (97) 143/111 (122) 158/105 (122) Pulse Ox 95 97 O2 Delivery Room Air Room Air Room Air 07/20/18 07/20/18 07/20/18 07/20/18 05:00 05:15 05:30 05:45 Pulse 135 110 120 121 Resp 20 18 16 18 B/P (MAP) 127/110 (116) 136/96 (109) 137/94 (108) 147/95 (112) Pulse Ox 96 96 97 100 O2 Delivery Room Air Room Air Room Air Room Air 07/20/18 07/20/18 07/20/18 07/20/18 06:00 06:15 06:30 06:45 Pulse 128 125 111 131 Resp 18 15 16 20 B/P (MAP) 145/113 (124) 138/116 (123) 148/99 (115) Pulse Ox 97 97 98 98 O2 Delivery Room Air Room Air Room Air Room Air 07/20/18 07/20/18 07/20/18 07/20/18 07:00 07:00 08:00 08:00 Pulse 133 135 135 Resp 17 19 B/P (MAP) 132/95 (107) Pulse Ox 98 98 95 O2 Delivery Room Air Room Air Room Air 07/20/18 07/20/18 07/20/18 07/20/18 09:00 10:00 11:00 11:31 Temp 97.9 Pulse 131 116 126 Resp 20 24 19 B/P (MAP) 131/104 (113) 133/102 (112) 139/104 (116) Pulse Ox 96 96 96 O2 Delivery Room Air Room Air Room Air Capillary Refill : Less Than 3 Seconds General Appearance: WD/WN, no apparent distress Respiratory: lungs clear, normal breath sounds Cardiovascular: tachycardia, irregularly irregular Peripheral Pulses: 2+ Dorsalis Pedis (R), 2+ Left Dors-Pedis (L) Gastrointestinal: normal bowel sounds, non tender, soft, no organomegaly Extremities: no pedal edema Neurologic/Psychiatric: alert, normal mood/affect Skin: normal color, warm/dry Assessment/Plan Assessment/Plan Admission Status: Inpatient Order (span 2 midnights) Reason for Inpatient Admission: Atrial fibrillation with RVR requiring continuous drip and still uncontrolled, likely need for cardioversion. (1) Atrial fibrillation with rapid ventricular response Status: Acute Assessment & Plan: Hemodynamically stable. Allergic to diltiazem, did not resolve with metoprolol in ER, started on amiodarone drip but remains in a fib with heart rate in one-teens to 130s, Cardiology consulted, anticipate cardioversion tomorrow am if no response to medications. Has been continuously anticoagulated for over 3 months. (2) Elevated troponin Status: Acute Assessment & Plan: Suspect demand related, Cardiology consulted, appreciate recommendations. (3) Paroxysmal atrial fibrillation Status: Chronic Assessment & Plan: Has been taking home medications regularly. (4) Coronary artery disease Status: Chronic Assessment & Plan: Continue aspirin. Qualifiers: Qualified Codes: I25.810 - Atherosclerosis of coronary artery bypass graft(s ) without angina pectoris (5) Hypertension Status: Chronic Qualifiers: Qualified Codes: I10 - Essential (primary) hypertension (6) Hyperlipidemia Status: Chronic Qualifiers: Qualified Codes: E78.00 - Pure hypercholesterolemia, unspecified (7) DVT prophylaxis Status: Acute Assessment & Plan: On rivaroxaban. Clinical Quality Measures DVT/VTE Risk/Contraindication: Risk Factor Score Per Nursin RFS Level Per Nursing on Admit: 2=Moderate MILIND RAMIREZ MD Jul 20, 2018 11:52
[2018-07-20] MEDS ORDERED: rOPINIRole 0.25 MG (REQUIP) TAB PO PRN (12:00)
[2018-07-20] MEDS ORDERED: ALPRAZolam 0.25 MG (XANAX) TAB PO PRN (12:00)
--- NOTE | 2018-07-20 14:13 | NUR ---
Pt is listed as Cheondoism but only her is Cheondoism. Topology Teacher provided prayer and blessing.
[2018-07-20] MEDS: rOPINIRole 0.25 MG (REQUIP) TAB PO SCH (16:38)
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
--- NOTE | 2018-07-20 19:20 | Consultation-Cardiology ---
HPI-Cardiology Cardiology Consultation: Date of Consultation 07/20/18 Time Seen by a Provider: 18:05 Date of Admission Attending Physician Alondra Ruffin MD Admitting Physician Sotero Adrian MD Consulting Physician ANISA GORDON MD, MA, FACP, FACC, [facility] Physician requesting consult: Dr Ruffin HPI: Chief Complaint: A-fib with RVR Ms. Garcia is a 78 year old female who was seen in the [facility] ED, found to be in a-fib with RVR, started on Amiodarone gtt and transferred to ICU 6. Her is at the bedside. She reports she has a h/o PAF which was first diagnosed in September 2017. She sees Dr. Vanna Mendez at [facility]; she saw her last on June 23, 2018. She reports she had a cardioversion at [facility] in Nov 2017. She states she is on Xarelto. She reports Xarelto has been uninterrupted tx for greater than 3 months. She states last evening she had finished eating; washed dishes and sat down. She reports she began to have a feeling of fluttering in her chest. She states she knew was back in a-fib. She waited for a few minutes and the symptoms persisted so she came to the ED at [facility]. She denies any CP, dyspnea, syncope or near syncope. She denies any n/v/d. She denies any fever or chills. She reports she has chronic mild lower extremity swelling which is unchanged in the recent past. She reports she does not sleep well at home. She reports she wakes up frequently during the night. She reports daytime somnolence. She is currently not reporting any symptoms. Review of Systems-Cardiology Review of Systems Constitutional: No chills, No fever Eyes: No vision change Ears/Nose/Throat: No epistaxis, No recent hearing loss Respiratory: As described under HPI Cardiovascular: As described under HPI Gastrointestinal: No constipation, No diarrhea, No nausea, No vomiting Genitourinary: No dysuria, No hematuria Musculoskeletal: no symptoms reported Skin: No rash, No ulcerations Psychiatric/Neurological: No seizure, No focal weakness, No syncope Hematologic: No bleeding abnormalities SSX-Hoz[facility]-Cbdchd Hx Patient Social History Alcohol Use: Denies Use Recreational Drug Use: No Smoking Status: Never a Smoker 2nd Hand Smoke Exposure: No Recent Foreign Travel: No Recent Infectious Disease Expo: No Hospitalization with Isolation: Denies Immunizations Up To Date Tetanus Booster (TDap): Unknown Date of Pneumonia Vaccine: Feb 20, 2018 Past Medical History PMH As described under Assessment. Family Medical History Family Medical History: Mother had CAD with 3 vessel CABG and CVA. Son has CAD with CABG in his 50's. Family History: Completed stroke 19 MOTHER, , Onset:60 years & older FH: CABG (coronary artery bypass surgery) 19 MOTHER, , Onset:Unknown FH: emphysema 19 FATHER, , Onset:Unknown Allergies and Home Medications Allergies Coded Allergies: amoxicillin (Verified Allergy, Unknown, 07/19/18) clavulanic acid (Verified Allergy, Unknown, 07/19/18) colesevelam (Verified Allergy, Unknown, 07/19/18) diltiazem (Verified Allergy, Unknown, rash, 06/19/18) oxycodone (Verified Allergy, Unknown, 07/19/18) rofecoxib (Verified Allergy, Unknown, 07/19/18) Uncoded Allergies: SULFA (Allergy, Unknown, hives, 06/19/18) Home Medications Allopurinol 100 Mg Tablet, 100 MG PO DAILY, (Reported) Alprazolam 0.25 Mg Tablet, 0.25 MG PO TID PRN for ANXIETY, (Reported) Calcium Carbonate/Vitamin D3 1 Each Tablet, 1 TAB PO BID, (Reported) Ezetimibe 10 Mg Tablet, 10 MG PO HS, (Reported) Furosemide 20 Mg Tablet, 20 MG PO DAILY PRN for SWELLING, (Reported) Roll-3 Fatty Acids/Fish Oil 1 Each Capsule, 1,000 MG PO BID, (Reported) Pantoprazole Sodium 40 Mg Tablet.dr, 40 MG PO DAILY, (Reported) Pravastatin Sodium 40 Mg Tablet, 40 MG PO HS, (Reported) Rivaroxaban 20 Mg Tablet, 20 MG PO DAILY, (Reported) Ropinirole HCl 0.25 Mg Tablet, 0.25 MG PO DAILY PRN for RESTLESS LEGS, (Reported ) Ropinirole HCl 0.25 Mg Tablet, 0.25 MG PO 1700, (Reported) Sotalol HCl 80 Mg Tablet, 80 MG PO DAILY, (Reported) Tramadol HCl 50 Mg Tablet, 50 MG PO Q6H PRN for BACK PAIN, (Reported) Patient Home Medication List Home Medication List Reviewed: Yes Physical Exam-Cardiology Physical Exam Vital Signs/I&O 07/20/18 07/20/18 07/20/18 07/20/18 08:00 08:00 09:00 10:00 Pulse 135 131 116 Resp 19 20 24 B/P (MAP) 132/95 (107) 131/104 (113) 133/102 (112) Pulse Ox 98 95 96 96 O2 Delivery Room Air Room Air Room Air Room Air 07/20/18 07/20/18 07/20/18 07/20/18 11:00 11:31 12:00 12:00 Temp 97.9 Pulse 126 114 Resp 19 15 B/P (MAP) 139/104 (116) 135/96 (109) Pulse Ox 96 96 95 O2 Delivery Room Air Room Air Room Air 07/20/18 07/20/18 07/20/18 07/20/18 12:44 13:00 14:00 15:00 Pulse 124 126 111 114 Resp 22 20 17 B/P (MAP) 117/88 (98) 120/102 (108) 138/93 (108) Pulse Ox 96 O2 Delivery Room Air Room Air Room Air 07/20/18 07/20/18 07/20/18 07/20/18 15:36 15:50 16:00 17:00 Temp 98.1 Pulse 123 111 B/P (MAP) 144/104 (117) 142/84 (103) Pulse Ox 95 96 98 O2 Delivery Room Air Room Air Room Air 07/20/18 18:00 Pulse 122 B/P (MAP) 146/118 (127) Pulse Ox 96 O2 Delivery Room Air 07/20/18 00:00 Intake Total 1003 ml Balance 1003 ml Capillary Refill : Less Than 3 Seconds Constitutional: AAO x 3, well-developed, well-nourished HEENT: PERRL, hearing is well preserved, oral hygience is good Neck: No carotid bruit; carotid pulses are 2 + bilaterally Respiratory: No accessory muscle use, No respiratory distress; chest expansion is symmetric, chest is bilaterally symmetric, lungs clear to auscultation Cardiovascular: irregularly irregular; No JVD; S1 and S2 Gastrointestinal: No tender; soft, round, audible bowel sounds Rectal: deferred Extremities: no lower extremity edema bilateral Neurologic/Psychiatric: grossly intact, power is 5/5 both on sides Skin: No rash, No ulcerations Data Review Labs Laboratory Tests 07/19/18 20:31: White Blood Count 7.0, Red Blood Count 3.90L, Hemoglobin 11.8, Hematocrit 37, Mean Corpuscular Volume 94, Mean Corpuscular Hemoglobin 30, Mean Corpuscular Hemoglobin Concent 32, Red Cell Distribution Width 12.4, Platelet Count 216, Mean Platelet Volume 10.7H, Neutrophils (%) (Auto) 55, Lymphocytes (%) (Auto) 31 , Monocytes (%) (Auto) 10, Eosinophils (%) (Auto) 3, Basophils (%) (Auto) 1, Neutrophils # (Auto) 3.8, Lymphocytes # (Auto) 2.2, Monocytes # (Auto) 0.7, Eosinophils # (Auto) 0.2, Basophils # (Auto) 0.0, Prothrombin Time 15.0H, INR Comment 1.1, Activated Partial Thromboplast Time 43H, Sodium Level 145, Potassium Level 4.2, Chloride Level 104, Carbon Dioxide Level 31, Anion Gap 10, Blood Urea Nitrogen 26H, Creatinine 1.16, Estimat Glomerular Filtration Rate 45 , BUN/Creatinine Ratio 22, Glucose Level 144H, Calcium Level 9.5, Corrected Calcium , Magnesium Level 1.8, Total Bilirubin 0.2, Aspartate Amino Transf (AST/ SGOT) 16, Alanine Aminotransferase (ALT/SGPT) 13, Alkaline Phosphatase 84, Troponin T 12H, Pro-B-Type Natriuretic Peptide 656.8H, Total Protein 7.6, Albumin 4.6H 07/19/18 20:47: Urine Color YELLOW, Urine Clarity CLEAR, Urine pH 6.0, Urine Specific Labelle <= 1.005, Urine Protein 1+H, Urine Glucose (UA) NEGATIVE, Urine Ketones NEGATIVE, Urine Nitrite NEGATIVE, Urine Bilirubin NEGATIVE, Urine Urobilinogen 0.2, Urine Leukocyte Esterase NEGATIVE, Urine RBC (Auto) NEGATIVE, Urine RBC NONE, Urine WBC RARE, Urine Squamous Epithelial Cells 0-2, Urine Crystals NONE, Urine Bacteria NEGATIVE, Urine Casts NONE, Urine Mucus NEGATIVE, Urine Culture Indicated NO 07/20/18 03:45: White Blood Count 6.8, Red Blood Count 4.06L, Hemoglobin 12.1, Hematocrit 38, Mean Corpuscular Volume 92, Mean Corpuscular Hemoglobin 30, Mean Corpuscular Hemoglobin Concent 32, Red Cell Distribution Width 12.7, Platelet Count 235, Mean Platelet Volume 11.0H, Neutrophils (%) (Auto) 66, Lymphocytes (%) (Auto) 23 , Monocytes (%) (Auto) 9, Eosinophils (%) (Auto) 2, Basophils (%) (Auto) 0, Neutrophils # (Auto) 4.5, Lymphocytes # (Auto) 1.6, Monocytes # (Auto) 0.6, Eosinophils # (Auto) 0.1, Basophils # (Auto) 0.0, Sodium Level 144, Potassium Level 4.1, Chloride Level 108H, Carbon Dioxide Level 23, Anion Gap 13, Blood Urea Nitrogen 19H, Creatinine 1.10, Estimat Glomerular Filtration Rate 48, BUN/ Creatinine Ratio 17, Glucose Level 127H, Calcium Level 10.1, Corrected Calcium 9.9, Magnesium Level 1.9, Total Bilirubin 0.3, Aspartate Amino Transf (AST/SGOT ) 17, Alanine Aminotransferase (ALT/SGPT) 12, Alkaline Phosphatase 66, Total Protein 7.0, Albumin 4.2, Phosphorus Level 3.2, Thyroid Stimulating Hormone (TSH ) 1.79 Laboratory Tests 07/19/18 20:31 07/20/18 03:45 A/P-Cardiology Assessment/Admission Diagnosis A-fib with RVR H/O PAF for which she follows with Dr. Mendez at [facility] - reports first dx in September 2017 H/O cardioversion at [facility] in Nov 2017 Xarelto for stroke prophylaxis - reports NO missed doses for greater than 6 months Allergy to Diltiazem - reports rash H/O CABG x 5 vessel in 2010 at [facility] by Dr. Solomon Mild cardiomyopathy. Echo of 07/20/18: LVEF 40-45%., mild to mod TR, mod dilatation of LA, PASP approx 25 mmHg HTN HLD - statin tx H/O gastric ulcers and GERD Anxiety Suspected sleep apnea Family h/o CAD - mother had CABG, CVA; son with CAD and CABG Discussion and Recomendations A-fib with RVR - h/o PAF for which she has been on OAC with Xarelto with uninterrupted tx for greater than 3 months. Continue OAC She is currently on Amiodarone gtt, rate is not well controlled and she remains in a-fib - continue BB She is intolerant to Diltiazem d/t reported rash If she remains in a-fib then plan for probable cardioversion in the morning Continue ASA d/t known h/o CAD with CABG Check TSH Monitor lab Advise out pt sleep studies d/t symptoms suggestive of sleep apnea We would like to thank medical services for this consult Further recs will be based on her hospital course Clinical Quality Measures DVT/VTE Risk/Contraindication: Risk Factor Score Per Nursin RFS Level Per Nursing on Admit: 2=Moderate ANISA GORDON MD FACP FAC CCDS Jul 20, 2018 19:20
[2018-07-20] MEDS ORDERED: NON-FORMULARY MEDICATION 1 EA EA (Pravastatin Sodium 40 MG) PO SCH (21:00)
[2018-07-20] MEDS: SIMvastatin 20 MG (ZOCOR) TAB PO SCH (21:14)
--- NOTE | 2018-07-20 22:29 | NUR ---
E-ICU contacted regarding amiodarone drip, awaiting orders.
[2018-07-21] VITALS (14 sets, daily range): BP systolic 101–147; BP diastolic 56–118
[2018-07-21 04:05] LABS: BASOPHILS % (AUTO) 1 % (0-10); EOSINOPHILS # (AUTO) 0.1 10^3/uL (0.0-0.3); EOSINOPHILS % (AUTO) 2 % (0-10); HEMATOCRIT 39 % (35-52); HEMOGLOBIN 12.5 G/DL (11.5-16.0); LYMPHOCYTES # (AUTO) 2.1 X 10^3 (1.0-4.0); LYMPHOCYTES % (AUTO) 30 % (12-44); MEAN CORPUSCULAR HEMOGLOBIN 30 PG (25-34); MEAN CORPUSCULAR HGB CONC 32 G/DL (32-36); MEAN CORPUSCULAR VOLUME 93 FL (80-99); MEAN PLATELET VOLUME 11.3 FL (7.4-10.4); MONOCYTES # (AUTO) 0.8 X 10^3 (0.0-1.0); MONOCYTES % (AUTO) 11 % (0-12); NEUTROPHILS # (AUTO) 4.1 X 10^3 (1.8-7.8); NEUTROPHILS % (AUTO) 57 % (42-75); PLATELET COUNT 227 10^3/uL (130-400); RED CELL DISTRIBUTION WIDTH 12.3 % (10.0-14.5); WHITE BLOOD COUNT 7.3 10^3/uL (4.3-11.0)
[2018-07-21 04:16] LABS: CALCIUM 9.7 MG/DL (8.5-10.1); CREATININE SERUM 1.19 MG/DL (0.60-1.30); MAGNESIUM 1.8 MG/DL (1.8-2.4); PHOSPHORUS 4.1 MG/DL (2.3-4.7)
[2018-07-21] MEDS: CATHETER FLUSH 10 ML SYR IV SCH ×3 (06:08→21:06)
--- NOTE | 2018-07-21 08:02 | Diagnostic Imaging Report ---
Indication: Atrial fibrillation. Sternal wires midline. The heart size within normal limits. There is no vascular congestion. No edema, pneumonia, effusion or pneumothorax. Impression: Stable chest. Dictated by: Dictated on workstation # [id number]
[2018-07-21] MEDS: RIVAROXABAN 20 MG TABLET (XARELTO) PO SCH (08:17)
[2018-07-21] MEDS: meTOprolol SUCCINATE 100 MG (TOPROL XL) TAB PO SCH (08:17)
[2018-07-21] MEDS ORDERED: NS IV 500 ML 500 ML ONE (08:30)
[2018-07-21] MEDS ORDERED: NON-FORMULARY MEDICATION 1 EA EA (Allopurinol 100 MG) PO SCH (09:00)
[2018-07-21] MEDS ORDERED: proPOfol 200 MG/20 ML (DIPRIVAN) VIAL IV ONE (09:12)
[2018-07-21] MEDS ORDERED: MIDAZOLAM 5 MG/5 ML (VERSED) VIAL ONE (09:12)
--- NOTE | 2018-07-21 09:24 | NUR ---
TIMELINE NOTE: 923-Anesthesia in room along with this RN, Dr. Green and [facility] Java Android Developer, Dalila. Anesthesia pushed 2mg Versed, 50 mcg of propofol. 924-Pt shocked at 120 joules and pt converted to sinus rhythm. 926-oral airway inserted, pt sedated, VS WNL 09-EKG obtained. 934-VS WNL, Pt still sedated will continue to monitor. 939-Pt arousing, oral airway removed, pt responded to this RN appropriately. 944-pt awake but drowsy. Family in room, pt conversing with family. Pt vital signs WNL, will continue to monitor pt. Addendum: 07/21/18 at 1020 by EILEEN RAMOS RN Pt was given 50 mg propofol
--- NOTE | 2018-07-21 09:35 | Anesthesia-Procedure Note ---
Procedures/Interventions Procedure Start/Stop/Diagnosis Date of Procedure: July 21, 2018 Start Time: 09:20 Referring Physician: Peter Preprocedural Diagnosis: A-fib with RVR Stop Time: 09:27 AMAURI/Cardioversion Anesthesia Type: MAC ASA Class: 3 Medications Versed 2mg, Propofol 50 mg Monitors and Equipment: BP Cuff - Right, Continuous EKG, IV, Pulse Oximeter READING,AL[place]RIA Pardo CRNA July 21, 2018 09:35
[2018-07-21] MEDS ORDERED: SOTALOL 80 MG (BETAPACE) TAB PO ONE (09:45)
--- NOTE | 2018-07-21 09:45 | Progress Note-Cardiology ---
Cardiology SOAP Progress Note Subjective: Gen malaise and palp (prior to elec CV) No cp or syncope or shortness of breath at rest Objective: I&O/Vital Signs 07/20/18 07/20/18 07/21/18 07/21/18 22:00 23:00 00:00 00:00 Temp 97.2 Pulse 124 130 118 Resp 16 18 14 B/P (MAP) 129/94 (106) 123/80 (94) 101/76 (84) O2 Delivery Room Air Room Air Room Air 07/21/18 07/21/18 07/21/18 07/21/18 00:00 01:00 01:00 02:00 Pulse 126 126 123 Resp 17 21 B/P (MAP) 122/83 (96) 129/93 (105) Pulse Ox 95 98 O2 Delivery Room Air Room Air Room Air 07/21/18 07/21/18 07/21/18 07/21/18 03:00 03:56 04:00 04:00 Temp 96.8 Pulse 126 122 Resp 25 15 B/P (MAP) 106/95 (99) 110/86 (94) Pulse Ox 96 95 95 O2 Delivery Room Air Room Air Room Air 07/21/18 07/21/18 07/21/18 07/21/18 05:15 06:00 07:00 07:01 Pulse 116 130 122 129 Resp 14 19 10 B/P (MAP) 147/98 (114) () 138/118 (125) Pulse Ox 98 97 100 O2 Delivery Room Air Room Air Room Air 07/21/18 07/21/18 07/21/18 08:00 08:00 09:26 Pulse 122 68 Resp 17 B/P (MAP) 145/92 (109) Pulse Ox 96 97 O2 Delivery Room Air Room Air 07/21/18 00:00 Intake Total 1334 ml Balance 1334 ml Weight (Pounds): 160 Weight (Ounces): 1.0 Weight (Calculated Kilograms): [id number] Constitutional: AAO x 3, well-developed, well-nourished Respiratory: No accessory muscle use, No respiratory distress; chest expansion is symmetric, chest is bilaterally symmetric, lungs clear to auscultation Cardiovascular: irregularly irregular; No JVD; S1 and S2 Gastrointestional: No tender; soft, round, audible bowel sounds Extremities: no lower extremity edema bilateral Neurologic/Psychiatric: grossly intact, power is 5/5 both on sides Skin: No rash, No ulcerations Results/Procedures: Labs Laboratory Tests 07/21/18 03:25: White Blood Count 7.3, Red Blood Count 4.15L, Hemoglobin 12.5, Hematocrit 39, Mean Corpuscular Volume 93, Mean Corpuscular Hemoglobin 30, Mean Corpuscular Hemoglobin Concent 32, Red Cell Distribution Width 12.3, Platelet Count 227, Mean Platelet Volume 11.3H, Neutrophils (%) (Auto) 57, Lymphocytes (%) (Auto) 30 , Monocytes (%) (Auto) 11, Eosinophils (%) (Auto) 2, Basophils (%) (Auto) 1, Neutrophils # (Auto) 4.1, Lymphocytes # (Auto) 2.1, Monocytes # (Auto) 0.8, Eosinophils # (Auto) 0.1, Basophils # (Auto) 0.0, Sodium Level 141, Potassium Level 4.0, Chloride Level 109H, Carbon Dioxide Level 20L, Anion Gap 12, Blood Urea Nitrogen 25H, Creatinine 1.19, Estimat Glomerular Filtration Rate 44, BUN/ Creatinine Ratio 21, Glucose Level 110H, Calcium Level 9.7, Phosphorus Level 4.1 , Magnesium Level 1.8 Laboratory Tests 07/19/18 20:31 07/20/18 03:45 07/21/18 03:25 A/P: Assessment: A-fib with RVR, converted to NSR with ext elec CV on 07/21/18 H/O PAF for which [facility] - reports first dx in September 2017 Xarelto for stroke prophylaxis - reports NO missed doses for greater than 6 months Allergy to Diltiazem - reports rash H/O CABG x 5 vessel in 2010 at [facility] by Dr. Solomon Mild cardiomyopathy. Echo of 07/20/18: LVEF 40-45%., mild to mod TR, mod dilatation of LA, PASP approx 25 mmHg HTN HLD - statin tx H/O gastric ulcers and GERD Anxiety Suspected sleep apnea Family h/o CAD - mother had CABG, CVA; son with CAD and CABG Plan: * Continue sotalol (to maintain sinus rhythm) * D/c amiodarone * Continue beta-nayely (given cardiomyopathy, CAD, and for control of vent rate during a fib) * Transfer to floor with tele * Monitor labs ANISA GORDON MD FACP FAC CCDS July 21, 2018 09:45
[2018-07-21] MEDS: ALLOPURINOL 100 MG (ZYLOPRIM) TAB PO SCH (10:27)
[2018-07-21] MEDS: PANTOPRAZOLE 40 MG (PROTONIX) TAB PO SCH (10:27)
--- NOTE | 2018-07-21 13:50 | NUR ---
report given to SEFERINO Green
--- NOTE | 2018-07-21 14:02 | NUR ---
YASTAN admitted to room 411 on 07/19/18 from ICU, accompanied by STAFF AND .STAN YA introduced to surroundings, call light, bed controls, phone, TV, temperature control, lights, meal times, smoking policy, visitor policy, side rail policy, bathrooms and showers. Patient Rights given to patient in the handbook. STAN YA verbalizes understanding that [facility] is not responsible for the loss or damage to any personal effects or valuables that are kept in the patients posession during their hospitalization.
--- NOTE | 2018-07-21 16:04 | OPERATIVE REPORT ---
DATE OF SERVICE: 07/21/2018 PREOPERATIVE DIAGNOSIS: Atrial fibrillation. POSTOPERATIVE DIAGNOSIS: Sinus rhythm. PROCEDURE: External electrical cardioversion. PROCEDURE IN DETAIL: Informed consent was obtained. The patient is chronically anticoagulated and fully anticoagulated with rivaroxaban. Short-acting acting anesthesia was provided by the nurse supervisor fruit grading. A 150 joules of synchronized shock was delivered through external patches, which restored sinus rhythm. She tolerated the procedure well. Job ID: [id number] DocumentID: [id number] Dictated Date: 07/21/2018 09:41:34 Administrative Executive Date: 07/21/2018 16:04:19 Dictated By: ANISA GORDON MD, MA, FACP, FACC,
--- NOTE | 2018-07-21 16:21 | Progress Note (SOAP) ---
Subjective Subjective/Events-last exam Remained in a fib with RVR this am, underwent cardioversion. Denies concerns. Review of Systems Date Seen by Provider: July 21, 2018 Time Seen by Provider: 10:10 Objective Exam Last Set of Vital Signs Vital Signs Date Time Temp Pulse Resp B/P (MAP) Pulse Ox O2 Delivery O2 Flow Rate FiO2 07/21/18 15:53 98.2 61 18 117/56 (76) 93 Room Air Capillary Refill : Less Than 3 Seconds I&O Intake and Output 07/21/18 00:00 Intake Total 1943 ml Balance 1943 ml Intake Oral 1425 ml IV Total 518 ml # Voids 9 # Bowel Movements 1 Daily Weight Change No General: Alert, No Acute Distress Lungs: Clear to Auscultation, Normal Air Movement Heart: Regular Rate, No Murmurs Abdomen: Normal Bowel Sounds, Soft, No Tenderness Neuro: Normal Speech Psych/Mental Status: Mood NL Results/Procedures Lab Laboratory Tests 07/21/18 03:25: White Blood Count 7.3, Red Blood Count 4.15L, Hemoglobin 12.5, Hematocrit 39, Mean Corpuscular Volume 93, Mean Corpuscular Hemoglobin 30, Mean Corpuscular Hemoglobin Concent 32, Red Cell Distribution Width 12.3, Platelet Count 227, Mean Platelet Volume 11.3H, Neutrophils (%) (Auto) 57, Lymphocytes (%) (Auto) 30 , Monocytes (%) (Auto) 11, Eosinophils (%) (Auto) 2, Basophils (%) (Auto) 1, Neutrophils # (Auto) 4.1, Lymphocytes # (Auto) 2.1, Monocytes # (Auto) 0.8, Eosinophils # (Auto) 0.1, Basophils # (Auto) 0.0, Sodium Level 141, Potassium Level 4.0, Chloride Level 109H, Carbon Dioxide Level 20L, Anion Gap 12, Blood Urea Nitrogen 25H, Creatinine 1.19, Estimat Glomerular Filtration Rate 44, BUN/ Creatinine Ratio 21, Glucose Level 110H, Calcium Level 9.7, Phosphorus Level 4.1 , Magnesium Level 1.8 Microbiology 07/20/18 MRSA Screen - Final, Complete MRSA not isolated Radiology NAME: STAN YA [facility] REC#: [id number] PT STATUS: ADM IN : 1940 PHYSICIAN: MILIND RAMIREZ MD ADMIT DATE: 07/19/18/ICU Draft Date of Exam:07/20/18 CHEST 1 VIEW, AP/PA ONLY INDICATION: Atrial fibrillation. COMPARISON: 07/19/2018. FINDINGS: The sternal wires are midline. The heart size is within normal limits. Some minimal linear scarring in the lung bases is chronic. No infiltrate, edema, effusion, or pneumothorax. IMPRESSION: Stable chest. Dictated on workstation # [id number] Dict: 07/20/18 [id number] Trans: 07/20/18 [id number] Interpreted by: MELISSA DE LA CRUZ Electronically signed by: Assessment/Plan Assessment/Plan (1) Atrial fibrillation with rapid ventricular response Status: Acute Assessment & Plan: Hemodynamically stable. Allergic to diltiazem, did not resolve with metoprolol in ER, started on amiodarone drip but remains in a fib with heart rate in one-teens to 130s, Cardiology consulted, anticipate cardioversion tomorrow am if no response to medications. Has been continuously anticoagulated for over 3 months. 5/1 s/p cardioversion, started on sotalol per Cardiology, monitor. (2) Elevated troponin Status: Acute Assessment & Plan: Suspect demand related, Cardiology consulted, appreciate recommendations. (3) Paroxysmal atrial fibrillation Status: Chronic Assessment & Plan: Has been taking home medications regularly. (4) Coronary artery disease Status: Chronic Assessment & Plan: Continue aspirin. Qualifiers: Qualified Codes: I25.810 - Atherosclerosis of coronary artery bypass graft(s ) without angina pectoris (5) Hypertension Status: Chronic Qualifiers: Qualified Codes: I10 - Essential (primary) hypertension (6) Hyperlipidemia Status: Chronic Qualifiers: Qualified Codes: E78.00 - Pure hypercholesterolemia, unspecified (7) DVT prophylaxis Status: Acute Assessment & Plan: On rivaroxaban. Clinical Quality Measures DVT/VTE Risk/Contraindication: Risk Factor Score Per Nursin RFS Level Per Nursing on Admit: 2=Moderate MILIND RAMIREZ MD July 21, 2018 16:21
[2018-07-21] MEDS: rOPINIRole 0.25 MG (REQUIP) TAB PO SCH (17:31)
[2018-07-21] MEDS: SOTALOL 80 MG (BETAPACE) TAB PO SCH (21:05)
[2018-07-21] MEDS: SIMvastatin 20 MG (ZOCOR) TAB PO SCH (21:05)
[2018-07-22 00:21] VITALS: BP 112/73
[2018-07-22 04:25] LABS: BASOPHILS % (AUTO) 0 % (0-10); EOSINOPHILS # (AUTO) 0.1 10^3/uL (0.0-0.3); EOSINOPHILS % (AUTO) 2 % (0-10); HEMATOCRIT 36 % (35-52); HEMOGLOBIN 11.6 G/DL (11.5-16.0); LYMPHOCYTES # (AUTO) 1.6 X 10^3 (1.0-4.0); LYMPHOCYTES % (AUTO) 26 % (12-44); MEAN CORPUSCULAR HEMOGLOBIN 30 PG (25-34); MEAN CORPUSCULAR HGB CONC 32 G/DL (32-36); MEAN CORPUSCULAR VOLUME 93 FL (80-99); MEAN PLATELET VOLUME 11.1 FL (7.4-10.4); MONOCYTES # (AUTO) 0.7 X 10^3 (0.0-1.0); MONOCYTES % (AUTO) 11 % (0-12); NEUTROPHILS # (AUTO) 3.8 X 10^3 (1.8-7.8); NEUTROPHILS % (AUTO) 61 % (42-75); PLATELET COUNT 213 10^3/uL (130-400); RED CELL DISTRIBUTION WIDTH 12.4 % (10.0-14.5); WHITE BLOOD COUNT 6.3 10^3/uL (4.3-11.0)
[2018-07-22 04:35] VITALS: BP 136/63
[2018-07-22 04:43] LABS: CALCIUM 9.8 MG/DL (8.5-10.1); CREATININE SERUM 1.14 MG/DL (0.60-1.30); MAGNESIUM 1.7 MG/DL (1.8-2.4); POTASSIUM 4.5 MMOL/L (3.6-5.0)
[2018-07-22] MEDS: CATHETER FLUSH 10 ML SYR IV SCH (06:12)
[2018-07-22] MEDS: PANTOPRAZOLE 40 MG (PROTONIX) TAB PO SCH (06:12)
[2018-07-22 08:00] VITALS: BP 121/69
[2018-07-22] MEDS: ALLOPURINOL 100 MG (ZYLOPRIM) TAB PO SCH (08:07)
[2018-07-22] MEDS: meTOprolol SUCCINATE 100 MG (TOPROL XL) TAB PO SCH (08:07)
[2018-07-22] MEDS: SOTALOL 80 MG (BETAPACE) TAB PO SCH (08:07)
[2018-07-22] MEDS: RIVAROXABAN 20 MG TABLET (XARELTO) PO SCH (08:07)
--- NOTE | 2018-07-22 09:20 | Progress Note-Cardiology ---
Cardiology SOAP Progress Note Subjective: States she feels well and wants to go home. No c/o CP, palpitations, dyspnea, syncope or near syncope. Objective: I&O/Vital Signs 07/22/18 07/22/18 07/22/18 07/22/18 08:00 09:00 11:51 12:36 Temp 98.4 98.4 Pulse 61 59 62 Resp 18 18 B/P (MAP) 121/69 (86) 143/71 (95) Pulse Ox 99 96 98 O2 Delivery Room Air Room Air Room Air 07/22/18 16:41 B/P (MAP) 07/22/18 00:00 Intake Total 440 ml Output Total 350 ml Balance 90 ml Weight (Pounds): 160 Weight (Ounces): 1.0 Weight (Calculated Kilograms): 72.746090 Constitutional: AAO x 3, well-developed, well-nourished Respiratory: No accessory muscle use, No respiratory distress; chest expansion is symmetric, chest is bilaterally symmetric, lungs clear to auscultation Cardiovascular: regular rate-rhythm; No JVD; S1 and S2 Gastrointestional: No tender; soft, round, audible bowel sounds Extremities: no lower extremity edema bilateral Neurologic/Psychiatric: grossly intact, power is 5/5 both on sides Skin: No rash, No ulcerations Results/Procedures: Labs Laboratory Tests 07/22/18 04:00: White Blood Count 6.3, Red Blood Count 3.87L, Hemoglobin 11.6, Hematocrit 36, Mean Corpuscular Volume 93, Mean Corpuscular Hemoglobin 30, Mean Corpuscular Hemoglobin Concent 32, Red Cell Distribution Width 12.4, Platelet Count 213, Mean Platelet Volume 11.1H, Neutrophils (%) (Auto) 61, Lymphocytes (%) (Auto) 26 , Monocytes (%) (Auto) 11, Eosinophils (%) (Auto) 2, Basophils (%) (Auto) 0, Neutrophils # (Auto) 3.8, Lymphocytes # (Auto) 1.6, Monocytes # (Auto) 0.7, Eosinophils # (Auto) 0.1, Basophils # (Auto) 0.0, Sodium Level 143, Potassium Level 4.5, Chloride Level 110H, Carbon Dioxide Level 22, Anion Gap 11, Blood Urea Nitrogen 24H, Creatinine 1.14, Estimat Glomerular Filtration Rate 46, BUN/ Creatinine Ratio 21, Glucose Level 103, Calcium Level 9.8, Phosphorus Level 4.0 , Magnesium Level 1.7L Microbiology 07/20/18 MRSA Screen - Final, Complete MRSA not isolated A/P: Assessment: A-fib with RVR, converted to NSR with ext elec CV on 07/21/18 H/O PAF for which she follows with Dr. Mendez at [facility] - reports first dx in September 2017 Xarelto for stroke prophylaxis - reports NO missed doses for greater than 6 months Allergy to Diltiazem - reports rash H/O CABG x 5 vessel in 2010 at [facility] by Dr. Solomon Mild cardiomyopathy. Echo of 07/20/18: LVEF 40-45%., mild to mod TR, mod dilatation of LA, PASP approx 25 mmHg HTN HLD - statin tx H/O gastric ulcers and GERD Anxiety Suspected sleep apnea Family h/o CAD - mother had CABG, CVA; son with CAD and CABG Plan: * Maintaining SR * Continue sotalol (to maintain sinus rhythm) * Continue beta-nayely (given cardiomyopathy, CAD, and for control of vent rate during a fib) * Replace Mg * OK to discharge home today * Advise out pt sleep studies d/t suspected sleep apnea * She wishes to f/u with her nursing unit manager at [facility] as an out pt * Advised continued compliance with OAC - per clinical pharmacist d/t Cr her dose is advised to be decreased to 15mg daily - will send in new Rx Physician Assessment Physician Assessment No cp or palp or syncope or shortness of breath Lungs: clear Cor: reg Ext: no c/c/e A&R * As documented in our note above that I updated (italics) and as noted below * On sotalol chronically that was continued post cardioversion yesterday. ECG today does not show any QT prolongation. * Based on creatinine clearance, hospital pharmacist has advised rivaroxaban 15 mg daily instead of 20 mg daily * Outpt f/u advised with her regular nursing unit manager SERGEY MCCARTHY July 22, 2018 09:20 ANISA GORDON MD FACP [facility] July 22, 2018 18:28
[2018-07-22] MEDS ORDERED: Sotalol Hcl PO (09:26)
[2018-07-22] MEDS ORDERED: METO-395 PO (09:26)
[2018-07-22] MEDS ORDERED: MAGNESIUM OXIDE (MAG-OX)400 MG TAB PO NR (09:30)
[2018-07-22] MEDS ORDERED: RIVA15TA PO (09:30)
--- NOTE | 2018-07-22 09:32 | Discharge Inst-Cardiology ---
Discharge Inst-Cardiac Discharge Medications New Medications: Rivaroxaban (Xarelto) 15 Mg Tablet 15 MG PO DAILY, #30 TAB 2 Refills Metoprolol Succinate (Metoprolol Succinate) 100 Mg Tab.er.24h 100 MG PO DAILY, #30 TAB 2 Refills [Sotalol Hcl] () 80 MG TAB 80 MG PO BID, TAB 2 Refills Continued Medications: Allopurinol (Allopurinol) 100 Mg Tablet 100 MG PO DAILY, TAB Alprazolam (Alprazolam) 0.25 Mg Tablet 0.25 MG PO TID PRN for ANXIETY, TAB Calcium Carbonate/Vitamin D3 (Calcium 500 + D Tablet) 1 Each Tablet 1 TAB PO BID, TAB Ezetimibe (Zetia) 10 Mg Tablet 10 MG PO HS, TAB [place]-3 Fatty Acids/Fish Oil ([place] 3 1,000 mg Softgel) 1 Each Capsule 1000 MG PO BID, CAP Pantoprazole Sodium (Pantoprazole Sodium) 40 Mg Tablet.dr 40 MG PO DAILY, TAB Pravastatin Sodium (Pravastatin Sodium) 40 Mg Tablet 40 MG PO HS, TAB Ropinirole HCl (Ropinirole HCl) 0.25 Mg Tablet 0.25 MG PO DAILY PRN for RESTLESS LEGS, TAB Ropinirole HCl (Ropinirole HCl) 0.25 Mg Tablet 0.25 MG PO 1700, TAB Tramadol HCl (Tramadol HCl) 50 Mg Tablet 50 MG PO Q6H PRN for BACK PAIN, TAB Discontinued Medications: Furosemide (Furosemide) 20 Mg Tablet 20 MG PO DAILY PRN for SWELLING, TAB Rivaroxaban (Xarelto) 20 Mg Tablet 20 MG PO DAILY, TAB Sotalol HCl (Sotalol) 80 Mg Tablet 80 MG PO DAILY, TAB New, Converted or Re-Newed RX: Transmitted to Pharmacy Patient Instructions Patient Instructions: Please call your greensman at [facility] for f/u appt in 2 weeks SERGEY MCCARTHY July 22, 2018 09:31
[2018-07-22] MEDS: MAGNESIUM 1 GM/100 ML IVPB 100 ML IV SCH ×2 (10:36→11:47)
--- NOTE | 2018-07-22 10:49 | Discharge Instructions ---
Discharge [facility] Discharge Medications New Medications: Rivaroxaban (Xarelto) 15 Mg Tablet 15 MG PO DAILY, #30 TAB 2 Refills Metoprolol Succinate (Metoprolol Succinate) 100 Mg Tab.er.24h 100 MG PO DAILY, #30 TAB 2 Refills [Sotalol Hcl] () 80 MG TAB 80 MG PO BID, TAB 2 Refills Continued Medications: Allopurinol (Allopurinol) 100 Mg Tablet 100 MG PO DAILY, TAB Alprazolam (Alprazolam) 0.25 Mg Tablet 0.25 MG PO TID PRN for ANXIETY, TAB Calcium Carbonate/Vitamin D3 (Calcium 500 + D Tablet) 1 Each Tablet 1 TAB PO BID, TAB Ezetimibe (Zetia) 10 Mg Tablet 10 MG PO HS, TAB [place]-3 Fatty Acids/Fish Oil ([place] 3 1,000 mg Softgel) 1 Each Capsule 1000 MG PO BID, CAP Pantoprazole Sodium (Pantoprazole Sodium) 40 Mg Tablet.dr 40 MG PO DAILY, TAB Pravastatin Sodium (Pravastatin Sodium) 40 Mg Tablet 40 MG PO HS, TAB Ropinirole HCl (Ropinirole HCl) 0.25 Mg Tablet 0.25 MG PO DAILY PRN for RESTLESS LEGS, TAB Ropinirole HCl (Ropinirole HCl) 0.25 Mg Tablet 0.25 MG PO 1700, TAB Tramadol HCl (Tramadol HCl) 50 Mg Tablet 50 MG PO Q6H PRN for BACK PAIN, TAB Discontinued Medications: Furosemide (Furosemide) 20 Mg Tablet 20 MG PO DAILY PRN for SWELLING, TAB Rivaroxaban (Xarelto) 20 Mg Tablet 20 MG PO DAILY, TAB Sotalol HCl (Sotalol) 80 Mg Tablet 80 MG PO DAILY, TAB Patient Instructions Goal/Follow Up Appt: Follow up with Cardiology as directed. Follow up with Dr. Adrian on 07/29 at 11 am. Activity & Diet Discharge Diet: Cardiac Diet Activity as Tolerated: Yes Copy Copies To 1: MAGI ADRIAN MD,MILIND Gustafson MD July 22, 2018 10:49
--- NOTE | 2018-07-22 10:50 | Discharge Summary ---
Diagnosis/Chief Complaint Date of Admission Jul 19, 2018 at 22:35 Date of Discharge July 22, 2018 Admission Diagnosis Admission Diagnosis Atrial fibrillation with RVR Discharge Diagnosis See problem list Problems/Diagnosis: (1) Atrial fibrillation with rapid ventricular response Assessment & Plan: Hemodynamically stable. Allergic to diltiazem, did not resolve with metoprolol in ER, started on amiodarone drip but remains in a fib with heart rate in one-teens to 130s, Cardiology consulted, anticipate cardioversion tomorrow am if no response to medications. Has been continuously anticoagulated for over 3 months. 5/ s/p cardioversion, started on sotalol per Cardiology, monitor. 5/2 remained normal after cardioversion and start of sotalol, meds on d/c per Cardiology. Status: Acute (2) Elevated troponin Assessment & Plan: Suspect demand related, Cardiology consulted, appreciate recommendations. Status: Acute (3) Paroxysmal atrial fibrillation Assessment & Plan: Has been taking home medications regularly. Status: Chronic (4) Coronary artery disease Assessment & Plan: Continue aspirin. Qualifiers: Qualified Codes: I25.810 - Atherosclerosis of coronary artery bypass graft(s ) without angina pectoris Status: Chronic (5) Hypertension Qualifiers: Qualified Codes: I10 - Essential (primary) hypertension Status: Chronic (6) Hyperlipidemia Qualifiers: Qualified Codes: E78.00 - Pure hypercholesterolemia, unspecified Status: Chronic Chief Complaint/HPI Chief Complaint/HPI 78 yo female presented to ER due to known paroxysmal atrial fibrillation, she started having racing heart at about 7 pm that did not stop. She had to have cardioversion in November in [place], and was in the hospital in March in [place] as well. She had a sinus infection followed by c diff followed by UTI over the last few months, but had actually been feeling well recently until this occurred. She denies fever, chest pain, shortness of breath or cough. She does have CAD and had CABG in the past. She sees Cardiology in [place]. She has been on Xarelto for anticoagulation. She is allergic to dilitiazem. Discharge Summary-Simple/Stand Procedures Cardioversion Consultations Discharge Physical Examination Allergies: Coded Allergies: amoxicillin (Verified Allergy, Unknown, 07/19/18) clavulanic acid (Verified Allergy, Unknown, 07/19/18) colesevelam (Verified Allergy, Unknown, 07/19/18) diltiazem (Verified Allergy, Unknown, rash, 06/19/18) oxycodone (Verified Allergy, Unknown, 07/19/18) rofecoxib (Verified Allergy, Unknown, 07/19/18) Uncoded Allergies: SULFA (Allergy, Unknown, hives, 06/19/18) Vitals & I&Os Vital Sign - Last 12Hours Date Time Temp Pulse Resp B/P (MAP) Pulse Ox O2 Delivery O2 Flow Rate FiO2 07/22/18 08:00 98.4 61 18 121/69 (86) 99 Room Air Intake and Output 07/21/18 23:59 Intake Total 440 ml Output Total 350 ml Balance 90 ml General Appearance: Alert, No Acute Distress Respiratory: Clear to Auscultation, Normal Air Movement Cardiovascular: Regular Rate, No Murmurs Psych/Mental Status: Mental Status NL, Mood NL Hospital Course See final discharge diagnosis. Labs Laboratory Tests Test 07/21/18 03:25 07/22/18 04:00 Range/Units White Blood Count 7.3 6.3 4.3-11.0 10^3/uL Red Blood Count 4.15 L 3.87 L 4.35-5.85 10^6/uL Hemoglobin 12.5 11.6 11.5-16.0 G/DL Hematocrit 39 36 35-52 % Mean Corpuscular Volume 93 93 80-99 FL Mean Corpuscular Hemoglobin 30 30 25-34 PG Mean Corpuscular Hemoglobin Concent 32 32 32-36 G/DL Red Cell Distribution Width 12.3 12.4 10.0-14.5 % Platelet Count 227 213 130-400 10^3/uL Mean Platelet Volume 11.3 H 11.1 H 7.4-10.4 FL Neutrophils (%) (Auto) 57 61 42-75 % Lymphocytes (%) (Auto) 30 26 12-44 % Monocytes (%) (Auto) 11 11 0-12 % Eosinophils (%) (Auto) 2 2 0-10 % Basophils (%) (Auto) 1 0 0-10 % Neutrophils # (Auto) 4.1 3.8 1.8-7.8 X 10^3 Lymphocytes # (Auto) 2.1 1.6 1.0-4.0 X 10^3 Monocytes # (Auto) 0.8 0.7 0.0-1.0 X 10^3 Eosinophils # (Auto) 0.1 0.1 0.0-0.3 10^3/uL Basophils # (Auto) 0.0 0.0 0.0-0.1 10^3/uL Sodium Level 141 143 135-145 MMOL/L Potassium Level 4.0 4.5 3.6-5.0 MMOL/L Chloride Level 109 H 110 H 98-107 MMOL/L Carbon Dioxide Level 20 L 22 21-32 MMOL/L Anion Gap 12 11 5-14 MMOL/L Blood Urea Nitrogen 25 H 24 H 7-18 MG/DL Creatinine 1.19 1.14 0.60-1.30 MG/DL Estimat Glomerular Filtration Rate 44 46 BUN/Creatinine Ratio 21 21 Glucose Level 110 H 103 70-105 MG/DL Calcium Level 9.7 9.8 8.5-10.1 MG/DL Phosphorus Level 4.1 4.0 2.3-4.7 MG/DL Magnesium Level 1.8 1.7 L 1.8-2.4 MG/DL Radiology Reviewed NAME: STAN YA [facility] REC#: [id number] PT STATUS: ADM IN : 1940 PHYSICIAN: MILIND RAMIREZ MD ADMIT DATE: 07/19/18/ICU Draft Date of Exam:07/20/18 CHEST 1 VIEW, AP/PA ONLY INDICATION: Atrial fibrillation. COMPARISON: 07/19/2018. FINDINGS: The sternal wires are midline. The heart size is within normal limits. Some minimal linear scarring in the lung bases is chronic. No infiltrate, edema, effusion, or pneumothorax. IMPRESSION: Stable chest. Dictated on workstation # [id number] Dict: 07/20/18 0802 Trans: 07/20/18 [id number] Interpreted by: MELISSA DE LA CRUZ Electronically signed by: Discharge Instructions to patient/family Please see electronic discharge instructions given to patient. Discharge Medications Reviewed and agree with Discharge Medication list on patient's Discharge Instruction sheet Clinical Quality Measures DVT/VTE Risk/Contraindication: Risk Factor Score Per Nursin RFS Level Per Nursing on Admit: 2=Moderate Copy Copies To 1: MAGI YEBOAH MD, BETHANY N MD July 22, 2018 10:50
[2018-07-22 11:51] VITALS: BP 143/71
--- NOTE | 2018-07-22 12:06 | NUR ---
Engaged , JESSICA, in rapport building and emotional support while he waited in the first floor lobby. He said the pt is expected to discharge today, and they are both eager for her to return home.
--- NOTE | 2018-07-26 13:14 | Physician Query Clarification ---
PQ-Intro New Diagnosis Admission/Discharge Admission Date: Jul 19, 2018 at 22:35 Discharge Date: July 22, 2018 at 15:45 The medical record reflects the following clinical scenario: History/Risk Factors: Atrial Fibrillation with rapid ventricular response. Atherosclerosis of coronary artery bypass graft(s) without angina pectoris per discharge summary. Cardiomyopathy Clinical Findings: Elevated troponin level of 12, Pro BNP 656.8. Treatment: Cardioversion,multiple EKGs, cardiology consult. Discharge summary states, "elevated troponin, suspect demand related". Question: What condition best reflects the above clinical scenario for elevated Troponin? Please document below. 1. Elevated troponin due to Type [address] 2. Elevated troponin only without the diagnosis of Type [address] CT[address] 3. Other, with explanation of the clinical findings. 4. Clinically undetermined, no explanation for the clinical findings. PHYSICIAN RESPONSE What condition reflects above: 1 In responding to this query, please exercise your independent professional judgment. The purpose of this communication is to more accurately reflect the complexity of your patients condition. The fact that a question is asked does not imply that any particular answer is desired or expected. Thank you for your timely response to this clarification. Requestors name: Jes Sparks [facility] Phone # ext [phone] or [phone] THIS PHYSICIAN QUERY FORM IS A PERMANENT PART OF THE MEDICAL RECORD JES SPARKS July 26, 2018 13:14 MILIND RAMIREZ MD July 30, 2018 18:40
== END 2018-07-22 15:45 | disposition home or self-care (01) | DRG 281 ==
LOC: EDUNIT# 20:08 → ER FS 20:10 → ICU 22:35 → 4TH 07-21 14:00
PROVIDERS: ADMIT Family Medicine; ATTEND Family Medicine
PROC: 5A2204Z Restoration of Cardiac Rhythm, Single (ICD-10-PCS; principal; 2018-07-21)
DX: I48.0 Paroxysmal atrial fibrillation (principal); I21.A1 Myocardial infarction type 2; I10 Essential (primary) hypertension; I25.810 Atherosclerosis of coronary artery bypass graft(s) without angina pectoris; I42.9 Cardiomyopathy, unspecified; R79.89 Other specified abnormal findings of blood chemistry; I07.1 Rheumatic tricuspid insufficiency; E78.00 Pure hypercholesterolemia, unspecified; G47.30 Sleep apnea, unspecified; K21.9 Gastro-esophageal reflux disease without esophagitis; F41.9 Anxiety disorder, unspecified; Z95.1 Presence of aortocoronary bypass graft; Z79.01 Long term (current) use of anticoagulants; Z87.11 Personal history of peptic ulcer disease; Z82.49 Family history of ischemic heart disease and other diseases of the circulatory system; Z82.3 Family history of stroke
CPT/HCPCS: 36415; 71045; 80048; 80053; 81000; 83735; 83880; 84100; 84443; 84484; 85025; 85610; 85730; 87081; 93005; 93041; 93306; 96361; 96365; 96366; 96375

== ENCOUNTER → 2020-12-24 | Outpatient (CLI) | payer MEDICARE, OTHER ==
[~2020-12-24] MED LIST changes: +ALLO100T PO; +ALPR.25T PO; +CALC-654 PO; -DOXY100C2 PO; +DOXY100C5 PO; +EZET10TA17 PO; +FURO20TA4 PO; +MTP100TCR PO; +OMEG1CAP58 PO; +PANT40TA52 PO; +PRAV40TA2 PO; +RIVA15TA PO; +RIVA20TA PO; +ROPI0.253 PO; +STL80T PO; +Sotalol Hcl PO; +TRM50T PO
--- NOTE | 2020-12-24 10:40 | Diagnostic Imaging Report ---
INDICATION: Right knee pain. TIME OF EXAM: 10:28 AM 3 views of the right knee were obtained. Numerous surgical clips are identified in the medial soft tissues of the thigh and calf. There is some lateral compartment degenerative change with joint space narrowing and marginal spurring. Medial compartment is intact. Some mild patellofemoral degenerative change. No fracture, dislocation or effusion is identified. IMPRESSION: Mild degenerative changes. No acute bony abnormality is detected. Dictated by: Dictated on workstation # [id number]
== END ==
LOC: RAD FS 10:17
PROVIDERS: ATTEND Nurse Practitioner
DX: M17.11 Unilateral primary osteoarthritis, right knee (principal)
CPT/HCPCS: 73562

== ENCOUNTER → 2023-02-24 | Outpatient (CLI) | payer MEDICARE, OTHER ==
[~2023-02-24] VITALS: Ht 157.5 cm; Wt 70.4 kg
[~2023-02-24] MED LIST changes: -EZET10TA17 PO; +EZET10TA83 PO; +MAGN400T39 PO; -ROPI0.253 PO; +ROPI0.2533 PO; +TRAZ-227 PO
[2023-02-24 10:44] LABS: CLARITY,URINE CLEAR; COLOR,URINE YELLOW
[2023-02-24 10:45] LABS: BACTERIA,URINE NEGATIVE /HPF; BILIRUBIN,URINE NEGATIVE (NEGATIVE); GLUCOSE, URINE (UA) NEGATIVE (NEGATIVE); KETONES,URINE NEGATIVE (NEGATIVE); LEUKOCYTE ESTERASE ,URINE NEGATIVE (NEGATIVE); NITRITE,URINE NEGATIVE (NEGATIVE); PROTEIN,URINE NEGATIVE (NEGATIVE)
[2023-02-24 12:06] LABS: BASOPHILS % (AUTO) 1 % (0-10); EOSINOPHILS # (AUTO) 0.1 10^3/uL (0.0-0.3); EOSINOPHILS % (AUTO) 1 % (0-10); HEMATOCRIT 41 % (35-52); HEMOGLOBIN 13.6 g/dL (11.5-16.0); LYMPHOCYTES # (AUTO) 1.8 10^3/uL (1.0-4.0); LYMPHOCYTES % (AUTO) 25 % (12-44); MEAN CORPUSCULAR HEMOGLOBIN 32 pg (25-34); MEAN CORPUSCULAR HGB CONC 33 g/dL (32-36); MEAN CORPUSCULAR VOLUME 95 fL (80-99); MEAN PLATELET VOLUME 10.5 fL (9.0-12.2); MONOCYTES # (AUTO) 0.5 10^3/uL (0.0-1.0); MONOCYTES % (AUTO) 7 % (0-12); NEUTROPHILS # (AUTO) 4.7 10^3/uL (1.8-7.8); NEUTROPHILS % (AUTO) 65 % (42-75); PLATELET COUNT 232 10^3/uL (130-400); WHITE BLOOD COUNT 7.2 10^3/uL (4.3-11.0)
[2023-02-24 12:10] LABS: ALBUMIN 4.9 GM/DL (3.2-4.5); CHLORIDE 102 MMOL/L (98-107); POTASSIUM 4.4 MMOL/L (3.6-5.0); SODIUM 138 MMOL/L (135-145)
[2023-02-24 12:11] LABS: CALCIUM 10.3 MG/DL (8.5-10.1)
[2023-02-24 12:12] LABS: GLUCOSE 76 MG/DL (70-105)
[2023-02-24 12:13] LABS: TOTAL PROTEIN 8.2 GM/DL (6.4-8.2)
[2023-02-24 12:14] LABS: BILIRUBIN,TOTAL 0.6 MG/DL (0.1-1.0); CARBON DIOXIDE 26 MMOL/L (21-32)
[2023-02-24 12:16] LABS: ALKALINE PHOSPHATASE 62 U/L (40-136); CREATININE SERUM 1.15 MG/DL (0.60-1.30); GFR ESTIMATED 48
[2023-02-24 12:17] LABS: BUN/CREATININE RATIO 15
[2023-02-24 12:19] LABS: ALANINE AMINOTRANSFERASE 14 U/L (0-55)
[2023-02-24 12:20] LABS: INR 1.6 (0.8-1.4)
--- NOTE | 2023-02-24 16:52 | Diagnostic Imaging Report ---
EXAMINATION: Chest 2 view HISTORY: Preoperative exam COMPARISON: 07/21/2018 FINDINGS: The lungs are clear without edema or pneumonia. No pleural effusion or pneumothorax. Heart size is normal. Median sternotomy wires are aligned. There are coronary artery bypass graft markers. IMPRESSION: 1. Clear lungs. Dictated by: Dictated on workstation # [id number]
== END ==
LOC: PREOP 09:08
PROVIDERS: ATTEND Orthopaedic Surgery
DX: Z01.818 Encounter for other preprocedural examination (principal); M17.11 Unilateral primary osteoarthritis, right knee
CPT/HCPCS: 36415; 71046; 80053; 81000; 85025; 85610; 86850; 86900; 86901; 87081